=== PATIENT | male | born 1945 | race American Indian/Alaskan Native ===

== ENCOUNTER 2019-05-30 17:28 | Inpatient (IN) | payer OTHER ==
[2019-05-30] MEDS ORDERED: BABY ASPIRIN PO ONE (19:10)
--- NOTE | 2019-05-30 19:18 | Emergency Department Report ---
ED Chest Pain HPI - General Chief Complaint: Chest Pain Stated Complaint: CHEST PAIN Time Seen by Provider: 05/30/19 19:06 Source: patient, EMS Mode of arrival: Stretcher Limitations: No Limitations - History of Present Illness Initial Comments: Patient is 73 years old male with history of pulmonary fibrosis and no recent diagnosis of pneumonia for which patient was admitted for 3 weeks at [facility]. Patient brought to the emergency room from his current acute rehabilitation facility for evaluation of left-sided chest pain started this morning. Patient describes his pain as sharp and aching sometimes with no radiation. Patient initial oxygen saturation was 81% on 2 L increased to 96% on a nonrebreather. Patient stated that his chest pain is much better after using non-rebreather. Patient denied any fever or chills. MD Complaint: chest pain -: This morning Onset: during rest Pain Location: left chest Severity: moderate Severity scale (0 -10): 7 Quality: aching Consistency: constant - Related Data Allergies Allergy/AdvReac Type Severity Reaction Status Date / Time No Known Allergies Allergy Verified 05/30/19 22:04 Heart Score - HEART Score History: Moderately suspicious EKG: Non-specific Age: > 65 Risk factors: 1-2 risk factors Troponin: < normal limit HEART Score: 5 - Critical Actions Critical Actions: 4-6 pts:12-16.6% risk of adverse cardiac event. Should be admitted ED Review of Systems ROS: Stated complaint: CHEST PAIN Other details as noted in HPI Comment: All other systems reviewed and negative Constitutional: denies: chills, fever Respiratory: orthopnea, shortness of breath, SOB with exertion, SOB at rest. denies: cough, wheezing Cardiovascular: chest pain. denies: palpitations Gastrointestinal: denies: abdominal pain, nausea, vomiting, diarrhea, const ipation, hematemesis, melena, hematochezia Musculoskeletal: denies: back pain Neurological: weakness (generalized). denies: headache ED Past Medical Hx - Past Medical History Previous Medical History?: Yes Hx Diabetes: Yes (type 2) Hx Psychiatric Treatment: Yes (PTSD) Additional medical history: Heart attack in February 2019. anemia - Social History Smoking Status: Never Smoker Substance Use Type: None ED Physical Exam - General Limitations: No Limitations General appearance: alert, in distress - Head Head exam: Present: atraumatic, normocephalic, normal inspection - Eye Eye exam: Present: normal appearance, PERRL - ENT ENT exam: Present: normal exam, mucous membranes dry - Neck Neck exam: Present: normal inspection, full ROM. Absent: tenderness, meningismus, lymphadenopathy, thyromegaly - Respiratory Respiratory exam: Present: respiratory distress, rales. Absent: wheezes, rhonchi, stridor, accessory muscle use, decreased breath sounds, prolonged expiratory - Cardiovascular Cardiovascular Exam: Present: tachycardia - GI/Abdominal GI/Abdominal exam: Present: soft, normal bowel sounds. Absent: distended, tenderness, guarding, rebound, rigid, mass, bruit, pulsatile mass, hernia - Extremities Exam Extremities exam: Present: normal inspection, normal capillary refill. Absent: pedal edema - Back Exam Back exam: Present: normal inspection, full ROM. Absent: CVA tenderness (R), CVA tenderness (L) - Neurological Exam Neurological exam: Present: alert, oriented X3, CN II-XII intact - Psychiatric Psychiatric exam: Present: normal mood - Skin Skin exam: Present: warm, normal color ED Course Vital Signs 05/30/19 05/30/19 18:46 19:01 Temperature 98.2 F 98.2 F Pulse Rate 107 H 107 H Respiratory 28 H 28 H Rate Blood Pressure 84/60 84/60 [Right] O2 Sat by Pulse 95 95 Oximetry ED Medical Decision Making - Lab Data Result diagrams: 05/30/19 20:53 05/30/19 20:53 - EKG Data -: EKG Interpreted by Dc EKG shows normal: sinus rhythm Rate: tachycardia - EKG Data Interpretation: no acute changes - Radiology Data Radiology results: report reviewed Referring Physician: ELIAN VILLASENOR Patient Name: JACINTO RODRÍGUEZ Date of : 1945 Sex: Male Report Date: 2019-05-30 Report Status: [place] [address] Cat Scan Report Signed Patient: JACINTO RODRÍGUEZ MR#: [id number] [birth year] : 1945 Acct:[id number] Age/Sex: 73 / M ADM Date: 05/30/19 Loc: ED Attending Dr: Ordering Physician: ELIAN VILLASENOR Date of Service: 05/30/19 Procedure(s): CT angio chest Accession Number(s): [id number] cc: ELIAN VILLASENOR CTA CHEST WITH IV CONTRAST INDICATION: CHEST PAIN WITH SOB WITH HIGH D-DIMER CONTRAST: Unspecified dosage of unspecified agent IV COMPARISON: Chest x-ray tonight Three-plane MIP reconstructions were produced. All CT scans at this location are performed using CT dose reduction for ALARA by means of automated exposure control. FINDINGS: Partially healed old left rib fractures are noted. No mediastinal or hilar masses are noted. No significant axillary or chest wall lesions are seen. Heart is enlarged. Large calcified granuloma is seen in the right middle lobe. Diffuse increased interstitial markings are noted of unclear chronicity. This could include interstitial edema but certainly at least some of these markings appear to be chronic. Mild atelectatic changes are seen but no definite dense areas of consolidation are identified. No obvious noncalcified pulmonary nodules are seen. Mild emphysematous changes are noted in the apical regions. Visualized portions of the upper abdomen show no significant abnormalities. Aorta shows no aneurysmal dilatation or evidence of dissection. Good opacification of the pulmonary arterial system was achieved. The central pulmonary arteries are prominent suggesting pulmonary arterial hypertension. Artifact on this study makes evaluation of the smaller pulmonary arteries difficult. No central PTE is identified. In one minimal area of a small right lower lobe pulmonary artery there is a possible small filling defect but I believe this is more likely artifact makes on multiplanar analysis then true PTE. IMPRESSION: 1. No definite evidence of pulmonary thromboembolism 2. Chronic changes are seen diffusely in the lung fatima. Superimposed interstitial edema cannot be excluded. Signer Name: Evelio Song MD Signed: 05/30/2019 11:14 PM Workstation Name: [id number] Transcribed By: GJ Dictated By: Evelio Song MD Electronically Authenticated By: Evelio Song MD Signed Date/Time: 05/30/19 2391 DD/ 04 TD/TT: - Medical Decision Making Patient is 73 years old male with history of pulmonary fibrosis and no recent diagnosis of pneumonia for which patient was admitted for 3 weeks at [facility]. Patient brought to the emergency room from his current acute rehabilitation facility for evaluation of left-sided chest pain started this morning. Patient describes his pain as sharp and aching sometimes with no radiation. Patient initial oxygen saturation was 81% on 2 L increased to 96% on a nonrebreather. Patient stated that his chest pain is much better after using non-rebreather. Patient denied any fever or chills. Labs reviewed and showed a lactic acid of 3. CTA chest is negative for pulmonary embolism but he showed pulmonary edema. I discussed the patient with Dr. Anjelica Hood, she agreed to admit the patient to medical service. Critical Care Time: Yes Critical care time in (mins) excluding proc time.: 30 Critical care attestation.: If time is entered above; I have spent that time in minutes in the direct care of this critically ill patient, excluding procedure time. ED Disposition Clinical Impression: Acute respiratory failure, Acute CHF, Hypotension Disposition: DC-[id number] OP ADMIT IP TO THIS HOSP Is pt being admited?: Yes Condition: Stable
[2019-05-30] MEDS ORDERED: NACL 0.9% 1000 ML IV ONE (19:19)
--- NOTE | 2019-05-30 20:10 | XRay Report ---
CHEST 1 VIEW INDICATION: Chest Pain. COMPARISON: None FINDINGS: SUPPORT DEVICES: None. HEART / MEDIASTINUM: No significant abnormality. LUNGS / PLEURA: Lung volumes are decreased. Interstitial markings are prominent. No pneumothorax. ADDITIONAL FINDINGS: IMPRESSION: 1. Diffuse interstitial pulmonary edema Signer Name: David Oropeza MD Signed: 05/30/2019 8:06 PM Workstation Name: [id number]
[2019-05-30 21:04] LABS: Basophils % (Auto) 0.3 % (0.0-1.8); Eosinophils % (Auto) 0.1 % (0.0-4.3); Hematocrit 33.7 % (35.5-45.6); Hemoglobin 11.3 gm/dl (11.8-15.2); Lymphocytes # (Auto) 0.5 K/mm3 (1.2-5.4); Lymphocytes % (Auto) 6.5 % (13.4-35.0); Mean Corpuscular HGB Conc 34 % (32-34); Mean Corpuscular Volume 83 fl (84-94); Monocytes # (Auto) 0.3 K/mm3 (0.0-0.8); Monocytes % (Auto) 3.4 % (0.0-7.3); Platelet Count 339 K/mm3 (140-440); Red Blood Count 4.09 M/mm3 (3.65-5.03); Red Cell Distribution Width 18.6 % (13.2-15.2)
[2019-05-30] MEDS ORDERED: NACL 0.9% 1000 ML 1,000 ML ONE (21:20)
[2019-05-30 21:21] LABS: INR 1.12 (0.87-1.13)
[2019-05-30 21:22] LABS: Partial Thromboplastin Time 34.1 Sec. (24.2-36.6)
[2019-05-30 21:32] LABS: Albumin 3.6 g/dL (3.9-5); Calcium 9.2 mg/dL (8.4-10.2)
[2019-05-30] MEDS ORDERED: ZOSYN/NS 3.375GM/50ML 3.375 GM/50 ML BAG IV ONE (22:00)
--- NOTE | 2019-05-30 23:18 | Cat Scan Report ---
CTA CHEST WITH IV CONTRAST INDICATION: CHEST PAIN WITH SOB WITH HIGH D-DIMER CONTRAST: Unspecified dosage of unspecified agent IV COMPARISON: Chest x-ray tonight Three-plane MIP reconstructions were produced. All CT scans at this location are performed using CT d ose reduction for ALARA by means of automated exposure control. FINDINGS: Partially healed old left rib fractures are noted. No mediastinal or hilar masses are noted . No significant axillary or chest wall lesions are seen. Heart is enlarged. Large calcified granulom a is seen in the right middle lobe. Diffuse increased interstitial markings are noted of unclear proofer prepress nicity. This could include interstitial edema but certainly at least some of these markings appear to be chronic. Mild atelectatic changes are seen but no definite dense areas of consolidation are ident ified. No obvious noncalcified pulmonary nodules are seen. Mild emphysematous changes are noted in th e apical regions. Visualized portions of the upper abdomen show no significant abnormalities. Aorta shows no aneurysmal dilatation or evidence of dissection. Good opacification of the pulmonary arterial system was achieved. The central pulmonary arteries are prominent suggesting pulmonary arterial hypertension. Artifact on this study makes evaluation of the smaller pulmonary arteries difficult. No central PTE is identified. In one minimal area of a small ri ght lower lobe pulmonary artery there is a possible small filling defect but I believe this is more l ikely artifact makes on multiplanar analysis then true PTE. IMPRESSION: 1. No definite evidence of pulmonary thromboembolism 2. Chronic changes are seen diffusely in the lung fatima. Superimposed interstitial edema cannot be e xcluded. Signer Name: Evelio Song MD Signed: 05/30/2019 11:14 PM Workstation Name: [id number]
[2019-05-30 23:21] LABS: Bilirubin,Urine NEG (Negative); Blood,Urine NEG (Negative); Color,Urine Yellow (Yellow); Hyaline Casts,Urine 5 /LPF; Mucus,Urine FEW /HPF; Protein,Urine <15 mg/dL mg/dL (Negative); RBC,Urine < 1.0 /HPF (0.0-6.0); Urobilinogen,Urine < 2.0 mg/dL (<2.0)
[2019-05-30] MEDS ORDERED: PROVENTIL IH PRN (23:55)
--- NOTE | 2019-05-30 23:56 | History and Physical Report ---
<JUAN WEEKS - Last Filed: 05/31/19 02:23> History of Present Illness Date of examination: 05/30/19 Date of admission: 05/30/2019 Chief complaint: chest pain History of present illness: 73-year-old -Lithuanian male is a resident of [facility] with history of PTSD, DM 2, HTN, pulmonary hypertension, [place] (03/07 19), anemia, pulmonary fibrosis, bronchiectasis, chronic respiratory failure on 2 L continuous supplemental oxygen who presents to [facility] ED with complaints of left- sided chest pain with radiation to left upper quadrant. Patient states his chest pain started approximately 1-2 hours before presenting to the ED. EMS was called and he was transported to our facility for further evaluation. Upon ar rival his oxygen saturation was in the low 80s on 2L nasal cannula. He was placed on a nonrebreather mask with improvement of saturation to mid 90s. Of note patient was recently admitted to [facility] and treated for pneumonia. Denies: n/v/, fever, diaphoresis, headache, cough, sputum production, or recent sick contact Past History Past Medical History: acute [place], arrhythmia (february 2019), anemia, diabetes (type2), hypertension, other (PTSD, pulmonary hypertension, failure to thrive, chronic hypoxic respiratory failure, pulmonary fibrosis, bronchiectasis) Past Surgical History: No surgical history Social history: other (resident of [facility]) Medications and Allergies Allergies Allergy/AdvReac Type Severity Reaction Status Date / Time No Known Allergies Allergy Verified 05/30/19 22:04 Home Medications Medication Instructions Recorded Confirmed Last Taken Type Budesonide [Pulmicort] 0.5 mg IH BID 06/02/19 06/02/19 Unknown History Lisinopril 20 mg PO QDAY 06/02/19 06/02/19 3 Days Ago History ~05/30/19 Pantoprazole 40 mg PO QDAY 06/02/19 06/02/19 3 Days Ago History ~05/30/19 RisperiDONE 1 mg PO HS 06/02/19 06/02/19 3 Days Ago History ~05/30/19 Sertraline HCl 50 mg PO DAILY 06/02/19 06/02/19 3 Days Ago History ~05/30/19 Tessalon Perles 100 mg PO DAILY MDD X14 DAY ODER 06/02/19 06/02/19 Unknown History ON Tylenol 650 mg PO Q4HR PRN 06/02/19 06/02/19 Unknown History Xanax TAB 0.25 mg PO Q12HR PRN 06/02/19 06/02/19 3 Days Ago History ~05/30/19 Review of Systems All systems: negative Cardiovascular: chest pain, shortness of breath, dyspnea on exertion Respiratory: shortness of breath, dyspnea on exertion, home oxygen (2L continuously) Exam - Physical Exam Narrative exam: Physical exam General appearance: Present: Mild discomfort, medically ill-appearing, alert and oriented 3, -Lithuanian older adult male - EENT Eyes: Present: PERRL, EOM intact ENT: hearing intact, missing teeth - Neck Neck: Present: supple, normal ROM - Respiratory Respiratory effort: Labored on supplemental oxygen Respiratory: Diminished throughout - Cardiovascular Heart rate: 67 (bpm) Rhythm: SR, nonspecific T-wave abnormality Heart Sounds: Present: S1 & S2. Absent: rub, click - Extremities Extremities: no ischemia, pulses intact - Peripheral Assessment Peripheral Pulses: within normal limits - Abdominal General gastrointestinal: soft, non-tender, normal bowel sounds - Integumentary Integumentary: Present: warm, dry - Musculoskeletal Musculoskeletal: generalized weakness, able to move extremities x4 -Neurological Neurological: CN II-XII grossly intact - Psychiatric Psychiatric: cooperative - Constitutional Vitals: Temp Pulse Resp BP Pulse Ox 98.2 F 107 H 28 H 84/60 95 05/30/19 19:01 05/30/19 19:01 05/30/19 19:01 05/30/19 19:01 05/30/19 19:01 Results - Labs CBC & Chem 7: 05/30/19 20:53 05/30/19 20:53 Labs: Laboratory Last Values WBC 7.6 K/mm3 (4.5-11.0) 05/30/19 20:53 RBC 4.09 M/mm3 (3.65-5.03) 05/30/19 20:53 Hgb 11.3 gm/dl (11.8-15.2) L 05/30/19 20:53 Hct 33.7 % (35.5-45.6) L 05/30/19 20:53 MCV 83 fl (84-94) L 05/30/19 20:53 MCH 28 pg (28-32) 05/30/19 20:53 MCHC 34 % (32-34) 05/30/19 20:53 RDW 18.6 % (13.2-15.2) H 05/30/19 20:53 Plt Count 339 K/mm3 (140-440) 05/30/19 20:53 Lymph % (Auto) 6.5 % (13.4-35.0) L 05/30/19 20:53 Wallace % (Auto) 3.4 % (0.0-7.3) 05/30/19 20:53 Eos % (Auto) 0.1 % (0.0-4.3) 05/30/19 20:53 Baso % (Auto) 0.3 % (0.0-1.8) 05/30/19 20:53 Lymph # 0.5 K/mm3 (1.2-5.4) L 05/30/19 20:53 Wallace # 0.3 K/mm3 (0.0-0.8) 05/30/19 20:53 Eos # 0.0 K/mm3 (0.0-0.4) 05/30/19 20:53 Baso # 0.0 K/mm3 (0.0-0.1) 05/30/19 20:53 Seg Neutrophils % 89.7 % (40.0-70.0) H 05/30/19 20:53 Seg Neutrophils # 6.9 K/mm3 (1.8-7.7) 05/30/19 20:53 PT 14.1 Sec. (12.2-14.9) 05/30/19 20:53 INR 1.12 (0.87-1.13) 05/30/19 20:53 APTT 34.1 Sec. (24.2-36.6) 05/30/19 20:53 330.84 ng/mlDDU (0-234) H 05/30/19 20:53 Sodium 133 mmol/L (137-145) L 05/30/19 20:53 Potassium 4.7 mmol/L (3.6-5.0) 05/30/19 20:53 Chloride 95.8 mmol/L (98-107) L 05/30/19 20:53 Carbon Dioxide 20 mmol/L (22-30) L 05/30/19 20:53 22 mmol/L 05/30/19 20:53 BUN 18 mg/dL (9-20) 05/30/19 20:53 1.4 mg/dL (0.8-1.5) 05/30/19 20:53 Estimated GFR 50 ml/min 05/30/19 20:53 13 % 05/30/19 20:53 Glucose 112 mg/dL (75-100) H 05/30/19 20:53 Lactic Acid 2.20 mmol/L (0.7-2.0) H* 05/30/19 22:46 Calcium 9.2 mg/dL (8.4-10.2) 05/30/19 20:53 0.30 mg/dL (0.1-1.2) 05/30/19 20:53 AST 14 units/L (5-40) 05/30/19 20:53 ALT 8 units/L (7-56) 05/30/19 20:53 91 units/L (35-129) 05/30/19 20:53 0.018 ng/mL (0.00-0.029) 05/30/19 20:53 NT-Pro-B Natriuret Pep 51698 pg/mL (0-900) H 05/30/19 20:53 7.1 g/dL (6.3-8.2) 05/30/19 20:53 3.6 g/dL (3.9-5) L 05/30/19 20:53 1.0 % 05/30/19 20:53 11 units/L (13-60) L 05/30/19 20:53 Yellow (Yellow) 05/30/19 23:00 Slightly-cloudy (Clear) 05/30/19 23:00 5.0 (5.0-7.0) 05/30/19 23:00 Ur Specific Chambers 1.041 (1.003-1.030) H 05/30/19 23:00 <15 mg/dl mg/dL (Negative) 05/30/19 23:00 Neg mg/dL (Negative) 05/30/19 23:00 Neg mg/dL (Negative) 05/30/19 23:00 Neg (Negative) 05/30/19 23:00 Neg (Negative) 05/30/19 23:00 Neg (Negative) 05/30/19 23:00 < 2.0 mg/dL (<2.0) 05/30/19 23:00 Ur Leukocyte Esterase Neg (Negative) 05/30/19 23:00 4.0 /HPF (0.0-6.0) 05/30/19 23:00 < 1.0 /HPF (0.0-6.0) 05/30/19 23:00 U Epithel Cells (Auto) 1.0 /HPF (0-13.0) 05/30/19 23:00 Hyaline Casts 5 /LPF 05/30/19 23:00 Few /HPF 05/30/19 23:00 - Imaging and Cardiology Imaging and Cardiology: CT angio Chest: FINDINGS: Partially healed old left rib fractures are noted. No mediastinal or hilar masses are noted. No significant axillary or chest wall lesions are seen. Heart is enlarged. Large calcified granuloma is seen in the right middle lobe. Diffuse increased interstitial markings are noted of unclear chronicity. This could include interstitial edema but certainly at least some of these markings appear to be chronic. Mild atelectatic changes are seen but no definite dense areas of consolidation are identified. No obvious noncalcified pulmonary nodules are seen. Mild emphysematous changes are noted in the apical regions. Visualized portions of the upper abdomen show no significant abnormalities. Aorta shows no aneurysmal dilatation or evidence of dissection. Good opacification of the pulmonary arterial system was achieved. The central pulmonary arteries are prominent suggesting pulmonary arterial hypertension. Artifact on this study makes evaluation of the smaller pulmonary arteries difficult. No central PTE is identified. In one minimal area of a small right lower lobe pulmonary artery there is a possible small filling defect but I believe this is more likely artifact makes on multiplanar analysis then true PTE. IMPRESSION: 1. No definite evidence of pulmonary thromboembolism 2. Chronic changes are seen diffusely in the lung fatima. Superimposed interstitial edema cannot be excluded. CXR: FINDINGS: SUPPORT DEVICES: None. HEART / MEDIASTINUM: No significant abnormality. LUNGS / PLEURA: Lung volumes are decreased. Interstitial markings are prominent. No pneumothorax. ADDITIONAL FINDINGS: IMPRESSION: 1. Diffuse interstitial pulmonary edema Assessment and Plan Assessment and plan: 73-year-old -Lithuanian male is a resident of [facility] with history of PTSD, DM 2, HTN, pulmonary hypertension, NJ (03/07 19), anemia, pulmonary fibrosis, bronchiectasis, chronic respiratory failure on 2 L continuous supplemental oxygen who presents to [facility] ED with complaints of left- sided chest pain with radiation to left upper quadrant. Acute Chest Pain R/O ACS -Initiate chest pain protocol -Continuous telemetry monitoring -Continue supportive care -Pain mgmt -Troponin negative x 1, will continue to trend -Start ASA and Statin -Lipid panel pending -Hx of [place] (02/2019) -Cardiology Consulted Exacerbation CHF -New onset -CXR showed Diffuse interstitial pulmonary edema -BNP elevated 29655 -Cardiology Consulted Acute on Chronic Hypoxic Respiratory Failure -Baseline oxygen 2L NC continuously -Oxygen saturation in the 80's on 2L NC -Currently on non-rebreather -ABG 7.383/33.8/64/21 -On IV systemic steroids -Monitor saturations wean as tolerate ILD -Likely having ILD flare -Hx Bronchiectasis -Hx Pulmonary fibrosis -CT angio Chest showed Chronic changes are seen diffusely in the lung fatima -Continue supplemental oxygen -Continue systemic steroids -Pulmonary consulted Suspicion of PE Elevated d-dimer 330.84 -CTA negative for PE -PE ruled out DM2 -POC BG monitoring -SSI coverage prn -HgbA1C pending Hypertension -Continue to monitor BP -Resume home antihypertensive meds to optimize BP once home medication reconciliation has been completed Lactic acidosis -Lactic Acid 3.00 on admission -Received dose of empiric IV abx in ED -Cultures pending -Repeat Lactic Acid 2.20 -Afebrile -No leukocytosis -Continue to monitor DVT PPX -On Lovenox Advance Directives: No VTE prophylaxis?: Chemical Plan of care discussed with patient/family: Yes <DISHA FLORES - Last Filed: 06/06/19 00:51> History of Present Illness Date of admission: 05/30/19 23:55 Medications and Allergies Active Meds: Active Medications Acetaminophen (Tylenol) 650 mg PO Q4H PRN PRN Reason: Pain MILD(1-3)/Fever >100.5/CARSON Albuterol (Proventil) 2.5 mg IH Q3HRT PRN PRN Reason: Shortness Of Breath Aspirin (Baby Aspirin) 81 mg PO QDAY SINID Atorvastatin Calcium (Lipitor) 40 mg PO QHS SINDI Dextrose (D50w (25gm) Syringe) 50 ml IV PRN PRN PRN Reason: Hypoglycemia Enoxaparin Sodium (Lovenox) 40 mg SUB-Q QDAY@1000 SINDI Hydromorphone HCl (Dilaudid) 0.5 mg IV Q3H PRN PRN Reason: Pain , Severe (7-10) Methylprednisolone Sodium Succinate (Solu-Medrol) 60 mg IV Q8HR [facility] Last Admin: 05/31/19 05:13 Dose: 60 mg Documented by: Morphine Sulfate (Morphine) 2 mg IV Q4H PRN PRN Reason: Pain, Moderate (4-6) Ondansetron HCl (Zofran) 4 mg IV Q6H PRN PRN Reason: Nausea And Vomiting Sodium Chloride (Sodium Chloride Flush Syringe 10 Ml) 10 ml IV BID SINDI Sodium Chloride (Sodium Chloride Flush Syringe 10 Ml) 10 ml IV PRN PRN PRN Reason: LINE FLUSH Exam - Constitutional Vitals: Temp Pulse Resp BP Pulse Ox 97.4 F L 89 18 97/66 100 05/31/19 04:34 05/31/19 04:34 05/31/19 04:34 05/31/19 04:34 05/31/19 04:34 Results - Labs CBC & Chem 7: 06/03/19 05:17 06/03/19 05:17 Labs: Laboratory Last Values WBC 7.6 K/mm3 (4.5-11.0) 05/30/19 20:53 RBC 4.09 M/mm3 (3.65-5.03) 05/30/19 20:53 Hgb 11.3 gm/dl (11.8-15.2) L 05/30/19 20:53 Hct 33.7 % (35.5-45.6) L 05/30/19 20:53 MCV 83 fl (84-94) L 05/30/19 20:53 MCH 28 pg (28-32) 05/30/19 20:53 MCHC 34 % (32-34) 05/30/19 20:53 RDW 18.6 % (13.2-15.2) H 05/30/19 20:53 Plt Count 339 K/mm3 (140-440) 05/30/19 20:53 Lymph % (Auto) 6.5 % (13.4-35.0) L 05/30/19 20:53 Wallace % (Auto) 3.4 % (0.0-7.3) 05/30/19 20:53 Eos % (Auto) 0.1 % (0.0-4.3) 05/30/19 20:53 Baso % (Auto) 0.3 % (0.0-1.8) 05/30/19 20:53 Lymph # 0.5 K/mm3 (1.2-5.4) L 05/30/19 20:53 Wallace # 0.3 K/mm3 (0.0-0.8) 05/30/19 20:53 Eos # 0.0 K/mm3 (0.0-0.4) 05/30/19 20:53 Baso # 0.0 K/mm3 (0.0-0.1) 05/30/19 20:53 Seg Neutrophils % 89.7 % (40.0-70.0) H 05/30/19 20:53 Seg Neutrophils # 6.9 K/mm3 (1.8-7.7) 05/30/19 20:53 PT 14.1 Sec. (12.2-14.9) 05/30/19 20:53 INR 1.12 (0.87-1.13) 05/30/19 20:53 APTT 34.1 Sec. (24.2-36.6) 05/30/19 20:53 330.84 ng/mlDDU (0-234) H 05/30/19 20:53 POC ABG pH 7.383 (7.35-7.45) 05/31/19 00:41 POC ABG pCO2 33.8 (35-45) L 05/31/19 00:41 POC ABG pO2 64 (80-105) L 05/31/19 00:41 POC ABG HCO3 20.1 (22-26 mml/L) 05/31/19 00:41 POC ABG Total CO2 21 (23-27mmol/L) 05/31/19 00:41 POC ABG O2 Sat 92 05/31/19 00:41 POC ABG Base Excess -5 ((-2) - (+3)mmol/L) 05/31/19 00:41 36 % 05/31/19 00:41 Sodium 133 mmol/L (137-145) L 09/12/19 20:53 Potassium 4.7 mmol/L (3.6-5.0) 05/30/19 20:53 Chloride 95.8 mmol/L (98-107) L 05/30/19 20:53 Carbon Dioxide 20 mmol/L (22-30) L 05/30/19 20:53 22 mmol/L 05/30/19 20:53 BUN 18 mg/dL (9-20) 05/30/19 20:53 1.4 mg/dL (0.8-1.5) 05/30/19 20:53 Estimated GFR 50 ml/min 05/30/19 20:53 13 % 05/30/19 20:53 Glucose 112 mg/dL (75-100) H 05/30/19 20:53 Lactic Acid 1.90 mmol/L (0.7-2.0) 05/31/19 03:44 Calcium 9.2 mg/dL (8.4-10.2) 05/30/19 20:53 0.30 mg/dL (0.1-1.2) 05/30/19 20:53 AST 14 units/L (5-40) 05/30/19 20:53 ALT 8 units/L (7-56) 05/30/19 20:53 91 units/L (35-129) 05/30/19 20:53 0.011 ng/mL (0.00-0.029) 05/31/19 00:51 NT-Pro-B Natriuret Pep 14481 pg/mL (0-900) H 05/30/19 20:53 7.1 g/dL (6.3-8.2) 05/30/19 20:53 3.6 g/dL (3.9-5) L 05/30/19 20:53 1.0 % 05/30/19 20:53 Triglycerides 74 mg/dL (2-149) 05/31/19 03:44 Cholesterol 182 mg/dL (50-199) 05/31/19 03:44 117 mg/dL (50-130) 05/31/19 03:44 67 mg/dL (40-59) H 05/31/19 03:44 2.71 % 05/31/19 03:44 11 units/L (13-60) L 05/30/19 20:53 Yellow (Yellow) 05/30/19 23:00 Slightly-cloudy (Clear) 05/30/19 23:00 5.0 (5.0-7.0) 05/30/19 23:00 Ur Specific Chambers 1.041 (1.003-1.030) H 05/30/19 23:00 <15 mg/dl mg/dL (Negative) 05/30/19 23:00 Neg mg/dL (Negative) 05/30/19 23:00 Neg mg/dL (Negative) 05/30/19 23:00 Neg (Negative) 05/30/19 23:00 Neg (Negative) 05/30/19 23:00 Neg (Negative) 05/30/19 23:00 < 2.0 mg/dL (<2.0) 05/30/19 23:00 Ur Leukocyte Esterase Neg (Negative) 05/30/19 23:00 4.0 /HPF (0.0-6.0) 05/30/19 23:00 < 1.0 /HPF (0.0-6.0) 05/30/19 23:00 U Epithel Cells (Auto) 1.0 /HPF (0-13.0) 05/30/19 23:00 Hyaline Casts 5 /LPF 05/30/19 23:00 Few /HPF 05/30/19 23:00 Assessment and Plan Assessment and plan: A 73-year-old man with a history of urinary fibrosis, diabetes, PTSD, coronary artery disease (doubt coronary artery disease, patient described a cardiac arrest) the emergency room complaining of chest pain, shortness of breath. Lungs significant for decreased breath sounds, start steroids and nebulizer treatments. cardiology consult, no sign or symptoms of infection, continue to monitor
[2019-05-31] MEDS ORDERED: SODIUM CHLORIDE FLUSH SYRINGE 10 ML IV PRN (00:07)
[2019-05-31] MEDS ORDERED: ZOFRAN IV PRN (00:07)
[2019-05-31] MEDS ORDERED: D50W (25GM) Syringe IV PRN (00:07)
[2019-05-31] MEDS ORDERED: DILAUDID IV PRN (00:07)
[2019-05-31] MEDS ORDERED: SOLU-Medrol ONE (00:56)
[2019-05-31] MEDS ORDERED: SOLU-Medrol IV ONE (01:30)
[2019-05-31 04:57] LABS: Chol/HDL Ratio 2.71 %
[2019-05-31] MEDS: SOLU-Medrol IV SCH ×3 (05:13→21:49)
[2019-05-31] MEDS: MORPHINE IV PRN ×3 (07:35→22:22)
[2019-05-31] MEDS ORDERED: LOVENOX SUB-Q SCH ×2 (10:00→22:00)
--- NOTE | 2019-05-31 13:24 | Consultation ---
History of Present Illness Consult date: 05/31/19 Consult reason: chest pain History of present illness: Patient is a frail 73-year old male with a history of chronic lung disease, pulmonary fibrosis on home oxygen, anxiety, diabetes and hypertension. Of note, patient has had multiple hospitalization at [facility] over the last 3 months. In February he was hospitalized with PEA arrest thought secondary to hypoxia. An echocardiogram revealed a normal LV size with a well preserved ejection fraction 62%. He was evaluated by cardiology who recommended outpatient follow up. More recently, patient was just discharged a week ago, after a prolonged hospital stay, with respiratory failure and pneumonia. Patient was brought to this hospital with shortness of breath and chest pain, admitted with acute hypoxic respiratory failure. Chest x-ray reports diffuse interstitial edema. Chest CTA reports diffuse chronic lung changes superimposed with pulmonary edema. No evidence of pulmonary embolism. Initial labs shows an elevated BNP. Cycled troponins were normal thus far. Blood pressure has remained in the 90 low 100s since admission. An ECG is sinus rhythm with diffuse Twave inversions. No prior ECG available for comparison. Past History Past Medical History: acute [place], arrhythmia (february 2019), anemia, diabetes (type2), hypertension, other (PTSD, pulmonary hypertension, failure to thrive, chronic hypoxic respiratory failure, pulmonary fibrosis, bronchiectasis) Past Surgical History: No surgical history Social history: other (resident of [facility]) Medications and Allergies Allergies Allergy/AdvReac Type Severity Reaction Status Date / Time No Known Allergies Allergy Verified 05/30/19 22:04 Active Meds: Active Medications Acetaminophen (Tylenol) 650 mg PO Q4H PRN PRN Reason: Pain MILD(1-3)/Fever >100.5/CARSON Albuterol (Proventil) 2.5 mg IH Q3HRT PRN PRN Reason: Shortness Of Breath Aspirin (Baby Aspirin) 81 mg PO QDAY SINDI Atorvastatin Calcium (Lipitor) 40 mg PO QHS SINDI Dextrose (D50w (25gm) Syringe) 50 ml IV PRN PRN PRN Reason: Hypoglycemia Enoxaparin Sodium (Lovenox) 40 mg SUB-Q QDAY@1000 SINDI Hydromorphone HCl (Dilaudid) 0.5 mg IV Q3H PRN PRN Reason: Pain , Severe (7-10) Methylprednisolone Sodium Succinate (Solu-Medrol) 60 mg IV Q8HR SINDI Last Admin: 05/31/19 05:13 Dose: 60 mg Documented by: Morphine Sulfate (Morphine) 2 mg IV Q4H PRN PRN Reason: Pain, Moderate (4-6) Last Admin: 05/31/19 07:35 Dose: 2 mg Documented by: Ondansetron HCl (Zofran) 4 mg IV Q6H PRN PRN Reason: Nausea And Vomiting Sodium Chloride (Sodium Chloride Flush Syringe 10 Ml) 10 ml IV BID SINDI Sodium Chloride (Sodium Chloride Flush Syringe 10 Ml) 10 ml IV PRN PRN PRN Reason: LINE FLUSH Physical Examination Vital Signs Temp Pulse Resp BP Pulse Ox 98.2 F 107 H 28 H 84/60 95 05/30/19 18:46 05/30/19 18:46 05/30/19 18:46 05/30/19 18:46 05/30/19 18:46 General appearance: mild distress HEENT: Positive: PERRL Neck: Positive: trachea midline Cardiac: Positive: Reg Rate and Rhythm Lungs: Positive: Decreased Breath Sounds Results 05/30/19 20:53 05/30/19 20:53 Cardiac Enzymes 05/30/19 Range/Units 20:53 AST 14 (5-40) units/L Coagulation 05/30/19 Range/Units 20:53 PT 14.1 (12.2-14.9) Sec. INR 1.12 (0.87-1.13) APTT 34.1 (24.2-36.6) Sec. Lipids 05/31/19 Range/Units 03:44 Triglycerides 74 (2-149) mg/dL Cholesterol 182 (50-199) mg/dL HDL Cholesterol 67 H (40-59) mg/dL Cholesterol/HDL Ratio 2.71 % CBC 05/30/19 Range/Units 20:53 WBC 7.6 (4.5-11.0) K/mm3 RBC 4.09 (3.65-5.03) M/mm3 Hgb 11.3 L (11.8-15.2) gm/dl Hct 33.7 L (35.5-45.6) % Plt Count 339 (140-440) K/mm3 Lymph # 0.5 L (1.2-5.4) K/mm3 [place] # 0.3 (0.0-0.8) K/mm3 Eos # 0.0 (0.0-0.4) K/mm3 Baso # 0.0 (0.0-0.1) K/mm3 Comprehensive Metabolic Panel 05/30/19 Range/Units 20:53 Sodium 133 L (137-145) mmol/L Potassium 4.7 (3.6-5.0) mmol/L Chloride 95.8 L (98-107) mmol/L Carbon Dioxide 20 L (22-30) mmol/L BUN 18 (9-20) mg/dL Creatinine 1.4 (0.8-1.5) mg/dL Glucose 112 H (75-100) mg/dL Calcium 9.2 (8.4-10.2) mg/dL AST 14 (5-40) units/L ALT 8 (7-56) units/L Alkaline Phosphatase 91 (35-129) units/L Total Protein 7.1 (6.3-8.2) g/dL Albumin 3.6 L (3.9-5) g/dL Assessment and Plan Acute hypoxic respiratory failure with hypoxia Lactic acidosis Chronic lung disease on home oxygen Volume overload Abnormal ECG Acute heart failure, diastolic EF 62% on echo 02/2019
--- NOTE | 2019-05-31 13:35 | Consultation ---
History of Present Illness Consult date: 05/31/19 Requesting physician: JUAN WEEKS Reason for consult: dyspnea History of present illness: 73 yo previously seen at [facility] by [facility]. He is admitted with increased SOB, hypoxia above baseline, and chest pain. Denies fevers, chills, cough, sputum, hemoptysis. Active Medications Acetaminophen (Tylenol) 650 mg PO Q4H PRN PRN Reason: Pain MILD(1-3)/Fever >100.5/CARSON Albuterol (Proventil) 2.5 mg IH Q3HRT PRN PRN Reason: Shortness Of Breath Aspirin (Baby Aspirin) 81 mg PO QDAY [facility] Atorvastatin Calcium (Lipitor) 40 mg PO QHS [facility] Last Admin: 05/31/19 22:20 Dose: 40 mg Documented by: Clopidogrel Bisulfate (Plavix) 75 mg PO QDAY [facility] Last Admin: 05/31/19 18:33 Dose: 75 mg Documented by: Dextrose (D50w (25gm) Syringe) 50 ml IV PRN PRN PRN Reason: Hypoglycemia Enoxaparin Sodium (Lovenox) 70 mg 1 mg/kg (70 mg) SUB-Q Q12HR [facility] Last Admin: 05/31/19 21:51 Dose: 70 mg Documented by: Furosemide (Lasix) 20 mg PO 0600,1800 [facility] Last Admin: 05/31/19 18:33 Dose: 20 mg Documented by: Hydromorphone HCl (Dilaudid) 0.5 mg IV Q3H PRN PRN Reason: Pain , Severe (7-10) Levofloxacin/Dextrose (Levaquin 750mg/150ml) 750 mg in 150 mls @ 100 mls/hr IV Q24HR [facility]; Protocol Methylprednisolone Sodium Succinate (Solu-Medrol) 60 mg IV Q8HR [facility] Last Admin: 05/31/19 21:49 Dose: 60 mg Documented by: Metoprolol Tartrate (Lopressor) 12.5 mg PO BID [facility] Last Admin: 05/31/19 22:15 Dose: 12.5 mg Documented by: Morphine Sulfate (Morphine) 2 mg IV Q4H PRN PRN Reason: Pain, Moderate (4-6) Last Admin: 05/31/19 22:22 Dose: 2 mg Documented by: Ondansetron HCl (Zofran) 4 mg IV Q6H PRN PRN Reason: Nausea And Vomiting Sodium Chloride (Sodium Chloride Flush Syringe 10 Ml) 10 ml IV BID [facility] Last Admin: 05/31/19 14:45 Dose: 10 ml Documented by: Sodium Chloride (Sodium Chloride Flush Syringe 10 Ml) 10 ml IV PRN PRN PRN Reason: LINE FLUSH Past History Past Medical History: acute NE, arrhythmia (february 2019), anemia, diabetes (type 2), hypertension, other (PTSD, pulmonary hypertension, failure to thrive, chronic hypoxic respiratory failure, pulmonary fibrosis, bronchiectasis) Past Surgical History: No surgical history Social history: other (resident of [facility]). denies: smoking Family history: other (No pulm issues) Medications and Allergies Allergies Allergy/AdvReac Type Severity Reaction Status Date / Time No Known Allergies Allergy Verified 05/30/19 22:04 Active Meds: Active Medications Acetaminophen (Tylenol) 650 mg PO Q4H PRN PRN Reason: Pain MILD(1-3)/Fever >100.5/CARSON Albuterol (Proventil) 2.5 mg IH Q3HRT PRN PRN Reason: Shortness Of Breath Aspirin (Baby Aspirin) 81 mg PO QDAY [facility] Atorvastatin Calcium (Lipitor) 40 mg PO QHS [facility] Dextrose (D50w (25gm) Syringe) 50 ml IV PRN PRN PRN Reason: Hypoglycemia Enoxaparin Sodium (Lovenox) 40 mg SUB-Q QDAY@1000 [facility] Hydromorphone HCl (Dilaudid) 0.5 mg IV Q3H PRN PRN Reason: Pain , Severe (7-10) Methylprednisolone Sodium Succinate (Solu-Medrol) 60 mg IV Q8HR [facility] Last Admin: 05/31/19 05:13 Dose: 60 mg Documented by: Morphine Sulfate (Morphine) 2 mg IV Q4H PRN PRN Reason: Pain, Moderate (4-6) Last Admin: 05/31/19 07:35 Dose: 2 mg Documented by: Ondansetron HCl (Zofran) 4 mg IV Q6H PRN PRN Reason: Nausea And Vomiting Sodium Chloride (Sodium Chloride Flush Syringe 10 Ml) 10 ml IV BID [facility] Sodium Chloride (Sodium Chloride Flush Syringe 10 Ml) 10 ml IV PRN PRN PRN Reason: LINE FLUSH Review of Systems All systems: negative Physical Examination Vital signs: Vital Signs Temp Pulse Resp BP Pulse Ox 98.2 F 107 H 28 H 84/60 95 05/30/19 18:46 05/30/19 18:46 05/30/19 18:46 05/30/19 18:46 05/30/19 18:46 Vital Signs - 24 hr 05/30/19 05/30/19 05/30/19 18:46 19:01 23:01 Temperature 98.2 F 98.2 F Pulse Rate 107 H 107 H Respiratory 28 H 28 H Rate Blood Pressure 92/61 Blood Pressure 84/60 84/60 [Right] O2 Sat by Pulse 95 95 100 Oximetry 05/30/19 05/30/19 05/30/19 23:10 23:20 23:30 Temperature Pulse Rate Respiratory Rate Blood Pressure 92/61 87/58 81/57 Blood Pressure [Right] O2 Sat by Pulse 100 100 97 Oximetry 05/30/19 05/30/19 05/31/19 23:41 23:51 00:00 Temperature Pulse Rate Respiratory Rate Blood Pressure 81/57 103/71 98/62 Blood Pressure [Right] O2 Sat by Pulse 96 93 91 Oximetry 05/31/19 05/31/19 05/31/19 00:11 00:21 00:31 Temperature Pulse Rate Respiratory Rate Blood Pressure 92/61 96/71 96/71 Blood Pressure [Right] O2 Sat by Pulse 72 L 78 L 92 Oximetry 05/31/19 05/31/19 05/31/19 00:41 00:51 01:00 Temperature Pulse Rate 100 H Respiratory 31 H Rate Blood Pressure 96/71 96/71 Blood Pressure [Right] O2 Sat by Pulse 99 97 96 Oximetry 05/31/19 05/31/19 05/31/19 01:01 01:11 01:21 Temperature Pulse Rate Respiratory Rate Blood Pressure 96/71 96/71 96/71 Blood Pressure [Right] O2 Sat by Pulse 97 97 99 Oximetry 05/31/19 05/31/19 05/31/19 01:31 01:41 01:51 Temperature Pulse Rate Respiratory Rate Blood Pressure 96/71 96/71 96/71 Blood Pressure [Right] O2 Sat by Pulse 98 99 95 Oximetry 05/31/19 05/31/19 05/31/19 02:01 02:11 02:21 Temperature Pulse Rate Respiratory Rate Blood Pressure 96/71 96/71 96/71 Blood Pressure [Right] O2 Sat by Pulse 99 94 98 Oximetry 05/31/19 05/31/19 05/31/19 02:31 02:41 02:51 Temperature Pulse Rate Respiratory Rate Blood Pressure 96/71 96/71 96/71 Blood Pressure [Right] O2 Sat by Pulse 98 96 99 Oximetry 05/31/19 05/31/19 05/31/19 03:00 03:02 03:11 Temperature 98.1 F Pulse Rate 93 H Respiratory 22 Rate Blood Pressure 97/65 97/65 Blood Pressure 97/65 [Right] O2 Sat by Pulse 98 98 94 Oximetry 05/31/19 05/31/19 05/31/19 04:02 04:05 04:34 Temperature 97.4 F L Pulse Rate 89 89 Respiratory 18 Rate Blood Pressure 97/66 Blood Pressure [Right] O2 Sat by Pulse 98 100 Oximetry General appearance: no acute distress, alert Eyes: non-icteric ENT: oropharynx moist Neck: supple Effort: normal Ascultation: Bilateral: rales Cardiovascular: regular rate and rhythm (no mrg) Gastrointestinal: normoactive bowel sounds, soft, non-tender, non-distended Integumentary: normal Extremities: no cyanosis, no edema, pink and warm normal mental status, non-focal exam, pupils equal and round, CN II-XII normal mood appropriate, affect normal Results - Laboratory Findings CBC and BMP: 05/30/19 20:53 05/30/19 20:53 ABG POC ABG pH 7.383 (7.35-7.45) 05/31/19 00:41 POC ABG pCO2 33.8 (35-45) L 05/31/19 00:41 POC ABG pO2 64 (80-105) L 05/31/19 00:41 POC ABG HCO3 20.1 (22-26 mml/L) 05/31/19 00:41 POC ABG Total CO2 21 (23-27mmol/L) 05/31/19 00:41 POC ABG O2 Sat 92 05/31/19 00:41 PT/INR, D-dimer PT 14.1 Sec. (12.2-14.9) 05/30/19 20:53 INR 1.12 (0.87-1.13) 05/30/19 20:53 330.84 ng/mlDDU (0-234) H 05/30/19 20:53 Abnormal lab findings: Abnormal Labs 05/30/19 05/30/19 05/30/19 20:53 20:53 20:53 Hgb 11.3 L Hct 33.7 L MCV 83 L RDW 18.6 H Lymph % (Auto) 6.5 L Lymph # 0.5 L Seg Neutrophils % 89.7 H D-Dimer 330.84 H POC ABG pCO2 POC ABG pO2 Sodium 133 L Chloride 95.8 L Carbon Dioxide 20 L Glucose 112 H POC Glucose Lactic Acid NT-Pro-B Natriuret Pep Albumin 3.6 L HDL Cholesterol Lipase 11 L Ur Specific [place] 05/30/19 05/30/19 05/30/19 20:53 20:53 22:46 Hgb Hct MCV RDW Lymph % (Auto) Lymph # Seg Neutrophils % D-Dimer POC ABG pCO2 POC ABG pO2 Sodium Chloride Carbon Dioxide Glucose POC Glucose Lactic Acid 3.00 H* 2.20 H* NT-Pro-B Natriuret Pep 16208 H Albumin HDL Cholesterol Lipase Ur Specific [place] 05/30/19 05/31/19 05/31/19 23:00 00:41 00:51 Hgb Hct MCV RDW Lymph % (Auto) Lymph # Seg Neutrophils % D-Dimer POC ABG pCO2 33.8 L POC ABG pO2 64 L Sodium Chloride Carbon Dioxide Glucose POC Glucose Lactic Acid 2.30 H* NT-Pro-B Natriuret Pep Albumin HDL Cholesterol Lipase Ur Specific [place] 1.041 H 05/31/19 05/31/19 05/31/19 03:44 06:32 11:53 Hgb Hct MCV RDW Lymph % (Auto) Lymph # Seg Neutrophils % D-Dimer POC ABG pCO2 POC ABG pO2 Sodium Chloride Carbon Dioxide Glucose POC Glucose 235 H 142 H Lactic Acid NT-Pro-B Natriuret Pep Albumin HDL Cholesterol 67 H Lipase Ur Specific [place] - Diagnostic Findings Chest x-ray: report reviewed, image reviewed CT scan - chest: report reviewed, image reviewed Assessment and Plan Imp: 1. ILD/pulm fibrosis with acute exac.; suspect due to chronic aspiration 2. Possible achalasia with severe GERD per PFH work-up 3. Chronic aspiration 2/2 #2 4. A/c respiratory failure, hypoxia 5. Pulm HTN, probably due to lung disease 6. Chest pain Rec: 1. Agree w/ Solumedrol; add ABX; the ground glass densities on CT may be due to pneumonia or fluid 2. He has only ever had CTA chest; needs HRCT at some point 3. CTD work-up already done; RF was positive; consider Rheum eval. as outpatient 4. HOB elevated 5. Consider anti-fibrotics as outpatient Plan of care reviewed w/ patient, he understands/agrees Thanks kindly for the consult.
[2019-05-31] MEDS: SODIUM CHLORIDE FLUSH SYRINGE 10 ML IV SCH (14:45)
--- NOTE | 2019-05-31 15:05 | Progress Note ---
Assessment and Plan Assessment and plan: 73-year-old -Citizen Of [place] male is a resident of [facility] with history of PTSD, DM 2, HTN, pulmonary hypertension, UT (03/07/19), anemia, pulmonary fibrosis, bronchiectasis, chronic respiratory failure on 2 L continuous supplemental oxygen who presents to [facility] ED with complaints of left- sided chest pain with radiation to left upper quadrant. Acute Chest Pain R/O ACS -Initiate chest pain protocol -Continuous telemetry monitoring -Continue supportive care -Pain mgmt -Troponin negative - on ASA and Statin -Hx of UT (02/2019) -Cardiology Consulted Exacerbation CHF -New onset -CXR showed Diffuse interstitial pulmonary edema -BNP elevated [id number] -Cardiology Consulted Acute on Chronic Hypoxic Respiratory Failure -Baseline oxygen 2L NC continuously -Oxygen saturation in the 80's on 2L NC -Currently on non-rebreather 10L -ABG 7.383/33.8/64/21 -On IV systemic steroids -Monitor saturations wean as tolerate ILD -Likely having ILD flare -Hx Bronchiectasis -Hx Pulmonary fibrosis -CT angio Chest showed Chronic changes are seen diffusely in the lung fatima -Continue supplemental oxygen -Continue systemic steroids -Pulmonary consulted Suspicion of PE Elevated d-dimer 330.84 -CTA negative for PE -PE ruled out DM2 -POC BG monitoring -SSI coverage prn Hypertension -Continue to monitor BP -Resume home antihypertensive meds to optimize BP once home medication rec onciliation has been completed Lactic acidosis -Lactic Acid 3.00 on admission repeat 1.9 -Received dose of empiric IV abx in ED -Afebrile -No leukocytosis -Continue to monitor DVT PPX -On Lovenox History Interval history: Patient was seen and developed this morning, patient was on non rebreather mask, 10L of oxygen. Hospitalist Physical - Physical exam Narrative exam: Patient is on non rebreather mask. The patient appeared well nourished and normally developed. Vital signs as documented. Head exam is unremarkable. No scleral icterus . Neck is without jugular venous distension, thyromegaly, or carotid bruits. Lungs are clear to auscultation. Cardiac exam reveals regular rate and Rhythm. Abdominal exam reveals normal bowel sounds, no masses, no organomegaly and no aortic enlargement. Extremities are nonedematous and both femoral and pedal pulses are normal. [employer]: Alert and oriented 3. No focal weakness. - Constitutional Vitals: Temp Pulse Resp BP Pulse Ox 97.4 F L 89 18 97/66 100 05/31/19 04:34 05/31/19 04:34 05/31/19 04:34 05/31/19 04:34 05/31/19 04:34 Results - Labs CBC & Chem 7: 05/30/19 20:53 05/30/19 20:53 Labs: Laboratory Last Values WBC 7.6 K/mm3 (4.5-11.0) 05/30/19 20:53 RBC 4.09 M/mm3 (3.65-5.03) 05/30/19 20:53 Hgb 11.3 gm/dl (11.8-15.2) L 05/30/19 20:53 Hct 33.7 % (35.5-45.6) L 05/30/19 20:53 MCV 83 fl (84-94) L 05/30/19 20:53 MCH 28 pg (28-32) 05/30/19 20:53 MCHC 34 % (32-34) 05/30/19 20:53 RDW 18.6 % (13.2-15.2) H 05/30/19 20:53 Plt Count 339 K/mm3 (140-440) 05/30/19 20:53 Lymph % (Auto) 6.5 % (13.4-35.0) L 05/30/19 20:53 [place] % (Auto) 3.4 % (0.0-7.3) 05/30/19 20:53 Eos % (Auto) 0.1 % (0.0-4.3) 05/30/19 20:53 Baso % (Auto) 0.3 % (0.0-1.8) 05/30/19 20:53 Lymph # 0.5 K/mm3 (1.2-5.4) L 05/30/19 20:53 [place] # 0.3 K/mm3 (0.0-0.8) 05/30/19 20:53 Eos # 0.0 K/mm3 (0.0-0.4) 05/30/19 20:53 Baso # 0.0 K/mm3 (0.0-0.1) 05/30/19 20:53 Seg Neutrophils % 89.7 % (40.0-70.0) H 05/30/19 20:53 Seg Neutrophils # 6.9 K/mm3 (1.8-7.7) 05/30/19 20:53 PT 14.1 Sec. (12.2-14.9) 05/30/19 20:53 INR 1.12 (0.87-1.13) 05/30/19 20:53 APTT 34.1 Sec. (24.2-36.6) 05/30/19 20:53 330.84 ng/mlDDU (0-234) H 05/30/19 20:53 POC ABG pH 7.383 (7.35-7.45) 05/31/19 00:41 POC ABG pCO2 33.8 (35-45) L 05/31/19 00:41 POC ABG pO2 64 (80-105) L 05/31/19 00:41 POC ABG HCO3 20.1 (22-26 mml/L) 05/31/19 00:41 POC ABG Total CO2 21 (23-27mmol/L) 05/31/19 00:41 POC ABG O2 Sat 92 05/31/19 00:41 POC ABG Base Excess -5 ((-2) - (+3)mmol/L) 05/31/19 00:41 36 % 05/31/19 00:41 Sodium 133 mmol/L (137-145) L 05/30/19 20:53 Potassium 4.7 mmol/L (3.6-5.0) 05/30/19 20:53 Chloride 95.8 mmol/L (98-107) L 05/30/19 20:53 Carbon Dioxide 20 mmol/L (22-30) L 05/30/19 20:53 22 mmol/L 05/30/19 20:53 BUN 18 mg/dL (9-20) 05/30/19 20:53 1.4 mg/dL (0.8-1.5) 05/30/19 20:53 Estimated GFR 50 ml/min 05/30/19 20:53 13 % 05/30/19 20:53 Glucose 112 mg/dL (75-100) H 05/30/19 20:53 POC Glucose 138 (70-105) H 05/31/19 14:08 Lactic Acid 1.90 mmol/L (0.7-2.0) 05/31/19 03:44 Calcium 9.2 mg/dL (8.4-10.2) 05/30/19 20:53 0.30 mg/dL (0.1-1.2) 05/30/19 20:53 AST 14 units/L (5-40) 05/30/19 20:53 ALT 8 units/L (7-56) 05/30/19 20:53 91 units/L (35-129) 05/30/19 20:53 0.011 ng/mL (0.00-0.029) 05/31/19 00:51 NT-Pro-B Natriuret Pep 32393 pg/mL (0-900) H 05/30/19 20:53 7.1 g/dL (6.3-8.2) 05/30/19 20:53 3.6 g/dL (3.9-5) L 05/30/19 20:53 1.0 % 05/30/19 20:53 Triglycerides 74 mg/dL (2-149) 05/31/19 03:44 Cholesterol 182 mg/dL (50-199) 05/31/19 03:44 117 mg/dL (50-130) 05/31/19 03:44 67 mg/dL (40-59) H 05/31/19 03:44 2.71 % 05/31/19 03:44 11 units/L (13-60) L 05/30/19 20:53 Yellow (Yellow) 05/30/19 23:00 Slightly-cloudy (Clear) 05/30/19 23:00 5.0 (5.0-7.0) 05/30/19 23:00 Ur Specific [place] 1.041 (1.003-1.030) H 05/30/19 23:00 <15 mg/dl mg/dL (Negative) 05/30/19 23:00 Neg mg/dL (Negative) 05/30/19 23:00 Neg mg/dL (Negative) 05/30/19 23:00 Neg (Negative) 05/30/19 23:00 Neg (Negative) 05/30/19 23:00 Neg (Negative) 05/30/19 23:00 < 2.0 mg/dL (<2.0) 05/30/19 23:00 Ur Leukocyte Esterase Neg (Negative) 05/30/19 23:00 4.0 /HPF (0.0-6.0) 05/30/19 23:00 < 1.0 /HPF (0.0-6.0) 05/30/19 23:00 U Epithel Cells (Auto) 1.0 /HPF (0-13.0) 05/30/19 23:00 Hyaline Casts 5 /LPF 05/30/19 23:00 Few /HPF 05/30/19 23:00 Active Medications - Current Medications Current Medications: Generic Name Dose Route Start Last Admin Trade Name Freq PRN Reason Stop Dose Admin Acetaminophen 650 mg 05/31/19 00:07 Tylenol PO Q4H PRN Pain MILD(1-3)/Fever >100.5/CARSON Albuterol 2.5 mg 05/30/19 23:55 Proventil IH Q3HRT PRN Shortness Of Breath Aspirin 81 mg 06/01/19 10:00 Baby Aspirin PO QDAY [facility] Atorvastatin Calcium 40 mg 05/31/19 22:00 Lipitor PO QHS SINDI Dextrose 50 ml 05/31/19 00:07 D50w (25gm) Syringe IV PRN PRN Hypoglycemia Enoxaparin Sodium 40 mg 05/31/19 10:00 05/31/19 14:42 Lovenox SUB-Q 40 mg QDAY@1000 S[facility]I Administration Hydromorphone HCl 0.5 mg 05/31/19 00:07 Dilaudid IV Q3H PRN Pain , Severe (7-10) Methylprednisolone Sodium Succinate 60 mg 05/31/19 06:00 05/31/19 14:43 Solu-Medrol IV 60 mg Q8HR SINDI Administration Morphine Sulfate 2 mg 05/31/19 00:07 05/31/19 14:43 Morphine IV 2 mg Q4H PRN Administration Pain, Moderate (4-6) Ondansetron HCl 4 mg 05/31/19 00:07 Zofran IV Q6H PRN Nausea And Vomiting Sodium Chloride 10 ml 05/31/19 10:00 05/31/19 14:45 Sodium Chloride Flush Syringe 10 Ml IV 10 ml BID [facility]I Administration Sodium Chloride 10 ml 05/31/19 00:07 Sodium Chloride Flush Syringe 10 Ml IV PRN PRN LINE FLUSH
[2019-05-31] MEDS: LASIX PO SCH (18:33)
[2019-05-31] MEDS: PLAVIX PO SCH (18:33)
[2019-05-31] MEDS: LOVENOX SUB-Q SCH (21:51)
[2019-05-31] MEDS: LOPRESSOR PO SCH (22:15)
[2019-06-01] MEDS: TYLENOL PO PRN (01:16)
[2019-06-01] MEDS: LASIX PO SCH ×2 (05:35→17:21)
[2019-06-01] MEDS: SOLU-Medrol IV SCH ×3 (05:37→22:39)
[2019-06-01] MEDS: MORPHINE IV PRN ×3 (05:37→16:54)
[2019-06-01 06:45] LABS: Basophils % (Auto) 0.1 % (0.0-1.8); Hematocrit 31.4 % (35.5-45.6); Hemoglobin 10.5 gm/dl (11.8-15.2); Lymphocytes # (Auto) 0.5 K/mm3 (1.2-5.4); Lymphocytes % (Auto) 6.3 % (13.4-35.0); Mean Corpuscular HGB Conc 34 % (32-34); Mean Corpuscular Volume 82 fl (84-94); Monocytes # (Auto) 0.3 K/mm3 (0.0-0.8); Monocytes % (Auto) 4.3 % (0.0-7.3); Platelet Count 316 K/mm3 (140-440); Red Blood Count 3.82 M/mm3 (3.65-5.03); Red Cell Distribution Width 18.6 % (13.2-15.2)
[2019-06-01 07:19] LABS: BUN/Creatinine Ratio 25; Blood Urea Nitrogen 27 mg/dL (9-20); Calcium 9.4 mg/dL (8.4-10.2); Hemolysis Index 6
[2019-06-01] MEDS: SODIUM CHLORIDE FLUSH SYRINGE 10 ML IV SCH ×3 (08:01→22:39)
[2019-06-01] MEDS: LOVENOX SUB-Q SCH ×2 (09:06→22:37)
[2019-06-01] MEDS: BABY ASPIRIN PO SCH (09:06)
[2019-06-01] MEDS: PLAVIX PO SCH (09:06)
[2019-06-01] MEDS: LOPRESSOR PO SCH ×2 (09:07→22:40)
--- NOTE | 2019-06-01 09:22 | Progress Note ---
Assessment and Plan Chest pain - reason for admission Acute heart failure with preserved EF (60% based on recent echo) Abnormal ECG consistent with ischemic heart disease Prior history of PEA arrest at [facility] treated conservatively due to multiple comorbidities Pulmonary fibrosis on Home O2 PTSD and anxiety disorder Recommendations: aspirin, plavix, Lovenox 1 mg/Kg SC bid, statins, metoprolol, lasix Eventual myocardial ischemia evaluation Further plan depends on clinical course Subjective Date of service: 06/01/19 Interval history: No acute events Objective Vital Signs Temp Pulse Resp Resp Resp BP Pulse Ox 06/01/19 08:50 82 06/01/19 08:36 98.2 F 63 18 105/71 99 06/01/19 05:37 20 06/01/19 04:16 98.5 F 70 18 104/65 100 06/01/19 04:00 20 06/01/19 02:20 96 06/01/19 01:16 18 06/01/19 00:43 98.2 F 68 18 111/75 100 06/01/19 00:00 18 18 05/31/19 22:53 97 05/31/19 22:52 18 05/31/19 22:22 20 05/31/19 22:15 91 H 111/70 05/31/19 19:39 98.0 F 103 H 18 102/73 95 05/31/19 15:25 98 05/31/19 11:44 98.5 F 96 H 18 103/73 97 - Physical Examination HEENT: Positive: PERRL Neck: Positive: trachea midline Cardiac: Positive: Reg Rate and Rhythm Lungs: Positive: Rales, Wheezes (scattered fine crackles) Extremities: Absent: edema - Labs and Meds CBC 06/01/19 Range/Units 05:06 WBC 8.0 (4.5-11.0) K/mm3 RBC 3.82 (3.65-5.03) M/mm3 Hgb 10.5 L (11.8-15.2) gm/dl Hct 31.4 L (35.5-45.6) % Plt Count 316 (140-440) K/mm3 Lymph # 0.5 L (1.2-5.4) K/mm3 [place] # 0.3 (0.0-0.8) K/mm3 Eos # 0.0 (0.0-0.4) K/mm3 Baso # 0.0 (0.0-0.1) K/mm3 Comprehensive Metabolic Panel 06/01/19 Range/Units 05:06 Sodium 138 (137-145) mmol/L Potassium 4.7 (3.6-5.0) mmol/L Chloride 99.4 (98-107) mmol/L Carbon Dioxide 23 (22-30) mmol/L BUN 27 H (9-20) mg/dL Creatinine 1.1 (0.8-1.5) mg/dL Glucose 123 H (75-100) mg/dL Calcium 9.4 (8.4-10.2) mg/dL
[2019-06-01] MEDS: LEVAQUIN 750MG/150ML 750 MG/150 ML BAG IV SCH (09:46)
--- NOTE | 2019-06-01 13:37 | Progress Note ---
Assessment and Plan Assessment and plan: 73-year-old -[place] male is a resident of [facility] with history of PTSD, DM 2, HTN, pulmonary hypertension, [place] (03/07/19), anemia, pulmonary fibrosis, bronchiectasis, chronic respiratory failure on 2 L continuous supplemental oxygen who presents to [facility] ED with complaints of left- sided chest pain with radiation to left upper quadrant. Acute Chest Pain R/O ACS -Initiate chest pain protocol -Continuous telemetry monitoring -Continue supportive care -Pain mgmt -Troponin negative - on ASA and Statin -Hx of [place] (02/2019) -Cardiology Consulted and recommended to do ischemic workup before discharge Exacerbation CHF -New onset -CXR showed Diffuse interstitial pulmonary edema -BNP elevated [id number] -Cardiology Consulted Acute on Chronic Hypoxic Respiratory Failure -Baseline oxygen 2L NC continuously -Oxygen saturation in the 80's on 2L NC -Currently on non-rebreather 10L -ABG 7.383/33.8/64/21 -On IV systemic steroids -Monitor saturations wean as tolerate ILD -Likely having ILD flare -Hx Bronchiectasis -Hx Pulmonary fibrosis -CT angio Chest showed Chronic changes are seen diffusely in the lung fatima -Continue supplemental oxygen -Continue systemic steroids -Pulmonary consulted Suspicion of PE Elevated d-dimer 330.84 -CTA negative for PE -PE ruled out DM2 -POC BG monitoring -SSI coverage prn Hypertension -Continue to monitor BP -Resume home antihypertensive meds to optimize BP once home medication reconciliation has been completed Lactic acidosis -Lactic Acid 3.00 on admission repeat 1.9 -Received dose of empiric IV abx in ED -Afebrile -No leukocytosis -Continue to monitor DVT PPX -On Lovenox History Interval history: Patient was seen and developed this morning, patient was on non rebreather mask, 10L of oxygen. Hospitalist Physical - Physical exam Narrative exam: Patient is on non rebreather mask. The patient appeared well nourished and normally developed. Vital signs as documented. Head exam is unremarkable. No scleral icterus . Neck is without jugular venous distension, thyromegaly, or carotid bruits. Lungs are clear to auscultation. Cardiac exam reveals regular rate and Rhythm. Abdominal exam reveals normal bowel sounds, no masses, no organomegaly and no aortic enlargement. Extremities are nonedematous and both femoral and pedal pulses are normal. 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 No focal weakness. - Constitutional Vitals: Temp Pulse Resp BP Pulse Ox 97.9 F 58 L 18 92/66 100 06/01/19 12:34 06/01/19 12:34 06/01/19 12:34 06/01/19 12:34 06/01/19 12:34 General appearance: Present: mild distress Results - Labs CBC & Chem 7: 06/01/19 05:06 06/01/19 05:06 Labs: Laboratory Last Values WBC 8.0 K/mm3 (4.5-11.0) 06/01/19 05:06 RBC 3.82 M/mm3 (3.65-5.03) 06/01/19 05:06 Hgb 10.5 gm/dl (11.8-15.2) L 06/01/19 05:06 Hct 31.4 % (35.5-45.6) L 06/01/19 05:06 MCV 82 fl (84-94) L 06/01/19 05:06 MCH 28 pg (28-32) 06/01/19 05:06 MCHC 34 % (32-34) 06/01/19 05:06 RDW 18.6 % (13.2-15.2) H 06/01/19 05:06 Plt Count 316 K/mm3 (140-440) 06/01/19 05:06 Lymph % (Auto) 6.3 % (13.4-35.0) L 06/01/19 05:06 [place] % (Auto) 4.3 % (0.0-7.3) 06/01/19 05:06 Eos % (Auto) 0.0 % (0.0-4.3) 06/01/19 05:06 Baso % (Auto) 0.1 % (0.0-1.8) 06/01/19 05:06 Lymph # 0.5 K/mm3 (1.2-5.4) L 06/01/19 05:06 [place] # 0.3 K/mm3 (0.0-0.8) 06/01/19 05:06 Eos # 0.0 K/mm3 (0.0-0.4) 06/01/19 05:06 Baso # 0.0 K/mm3 (0.0-0.1) 06/01/19 05:06 Seg Neutrophils % 89.3 % (40.0-70.0) H 06/01/19 05:06 Seg Neutrophils # 7.2 K/mm3 (1.8-7.7) 06/01/19 05:06 PT 14.1 Sec. (12.2-14.9) 05/30/19 20:53 INR 1.12 (0.87-1.13) 05/30/19 20:53 APTT 34.1 Sec. (24.2-36.6) 05/30/19 20:53 330.84 ng/mlDDU (0-234) H 05/30/19 20:53 POC ABG pH 7.383 (7.35-7.45) 05/31/19 00:41 POC ABG pCO2 33.8 (35-45) L 05/31/19 00:41 POC ABG pO2 64 (80-105) L 05/31/19 00:41 POC ABG HCO3 20.1 (22-26 mml/L) 05/31/19 00:41 POC ABG Total CO2 21 (23-27mmol/L) 05/31/19 00:41 POC ABG O2 Sat 92 05/31/19 00:41 POC ABG Base Excess -5 ((-2) - (+3)mmol/L) 05/31/19 00:41 36 % 05/31/19 00:41 Sodium 138 mmol/L (137-145) 06/01/19 05:06 Potassium 4.7 mmol/L (3.6-5.0) 06/01/19 05:06 Chloride 99.4 mmol/L (98-107) 06/01/19 05:06 Carbon Dioxide 23 mmol/L (22-30) 06/01/19 05:06 20 mmol/L 06/01/19 05:06 BUN 27 mg/dL (9-20) H 06/01/19 05:06 1.1 mg/dL (0.8-1.5) 06/01/19 05:06 Estimated GFR > 60 ml/min 06/01/19 05:06 25 % 06/01/19 05:06 Glucose 123 mg/dL (75-100) H 06/01/19 05:06 POC Glucose 121 (70-105) H 06/01/19 12:40 Lactic Acid 1.90 mmol/L (0.7-2.0) 05/31/19 03:44 Calcium 9.4 mg/dL (8.4-10.2) 06/01/19 05:06 0.30 mg/dL (0.1-1.2) 05/30/19 20:53 AST 14 units/L (5-40) 05/30/19 20:53 ALT 8 units/L (7-56) 05/30/19 20:53 91 units/L (35-129) 05/30/19 20:53 0.011 ng/mL (0.00-0.029) 05/31/19 00:51 NT-Pro-B Natriuret Pep 10405 pg/mL (0-900) H 05/30/19 20:53 7.1 g/dL (6.3-8.2) 05/30/19 20:53 3.6 g/dL (3.9-5) L 05/30/19 20:53 1.0 % 05/30/19 20:53 Triglycerides 74 mg/dL (2-149) 05/31/19 03:44 Cholesterol 182 mg/dL (50-199) 05/31/19 03:44 117 mg/dL (50-130) 05/31/19 03:44 67 mg/dL (40-59) H 05/31/19 03:44 2.71 % 05/31/19 03:44 11 units/L (13-60) L 05/30/19 20:53 Yellow (Yellow) 05/30/19 23:00 Slightly-cloudy (Clear) 05/30/19 23:00 5.0 (5.0-7.0) 05/30/19 23:00 Ur Specific [place] 1.041 (1.003-1.030) H 05/30/19 23:00 <15 mg/dl mg/dL (Negative) 05/30/19 23:00 Neg mg/dL (Negative) 05/30/19 23:00 Neg mg/dL (Negative) 05/30/19 23:00 Neg (Negative) 05/30/19 23:00 Neg (Negative) 05/30/19 23:00 Neg (Negative) 05/30/19 23:00 < 2.0 mg/dL (<2.0) 05/30/19 23:00 Ur Leukocyte Esterase Neg (Negative) 05/30/19 23:00 4.0 /HPF (0.0-6.0) 05/30/19 23:00 < 1.0 /HPF (0.0-6.0) 05/30/19 23:00 U Epithel Cells (Auto) 1.0 /HPF (0-13.0) 05/30/19 23:00 Hyaline Casts 5 /LPF 05/30/19 23:00 Few /HPF 05/30/19 23:00 Active Medications - Current Medications Current Medications: Generic Name Dose Route Start Last Admin Trade Name Freq PRN Reason Stop Dose Admin Acetaminophen 650 mg 05/31/19 00:07 06/01/19 01:16 Tylenol PO 650 mg Q4H PRN Administration Pain MILD(1-3)/Fever >100.5/CARSON Albuterol 2.5 mg 05/30/19 23:55 Proventil IH Q3HRT PRN Shortness Of Breath Aspirin 81 mg 06/01/19 10:00 06/01/19 09:06 Baby Aspirin PO 81 mg QDAY SINDI Administration Atorvastatin Calcium 40 mg 05/31/19 22:00 05/31/19 22:20 Lipitor PO 40 mg QHS SINDI Administration Clopidogrel Bisulfate 75 mg 05/31/19 17:00 06/01/19 09:06 Plavix PO 75 mg QDAY SINDI Administration Dextrose 50 ml 05/31/19 00:07 D50w (25gm) Syringe IV PRN PRN Hypoglycemia Enoxaparin Sodium 70 mg 05/31/19 22:00 06/01/19 09:06 Lovenox 1 mg/kg (70 mg) 70 mg SUB-Q Administration Q12HR SINDI Furosemide 20 mg 05/31/19 18:00 06/01/19 05:35 Lasix PO 20 mg 0600,1800 SINDI Administration Hydromorphone HCl 0.5 mg 05/31/19 00:07 Dilaudid IV Q3H PRN Pain , Severe (7-10) Levofloxacin/Dextrose 750 mg in 150 mls @ 100 mls/hr 06/01/19 10:00 06/01/19 09:46 Levaquin 750mg/150ml IV 100 mls/hr Q24HR SINDI Administration Protocol Methylprednisolone Sodium Succinate 60 mg 05/31/19 06:00 06/01/19 05:37 Solu-Medrol IV 60 mg Q8HR SINDI Administration Metoprolol Tartrate 12.5 mg 05/31/19 22:00 06/01/19 09:07 Lopressor PO 12.5 mg BID SINDI Administration Morphine Sulfate 2 mg 05/31/19 00:07 06/01/19 11:20 Morphine IV 2 mg Q4H PRN Administration Pain, Moderate (4-6) Ondansetron HCl 4 mg 05/31/19 00:07 Zofran IV Q6H PRN Nausea And Vomiting Sodium Chloride 10 ml 05/31/19 10:00 06/01/19 11:20 Sodium Chloride Flush Syringe 10 Ml IV 10 ml BID SINDI Administration Sodium Chloride 10 ml 05/31/19 00:07 Sodium Chloride Flush Syringe 10 Ml IV PRN PRN LINE FLUSH
--- NOTE | 2019-06-01 14:08 | Progress Note ---
Assessment and Plan Imp: 1. ILD/pulm fibrosis with acute exac.; suspect due to chronic aspiration 2. Possible achalasia with severe GERD per PFH work-up 3. Chronic aspiration 2/2 #2 4. A/c respiratory failure, hypoxia 5. Pulm HTN, probably due to lung disease 6. Chest pain Rec: 1. Agree w/ Solumedrol; add ABX; the ground glass densities on CT may be due to pneumonia or fluid 2. He has only ever had CTA chest; needs HRCT at some point 3. CTD work-up already done; RF was positive; consider Rheum eval. as outpatient 4. HOB elevated 5. Consider anti-fibrotics as outpatient Subjective Date of service: 06/01/19 Interval history: Patient feeling better. Denied any significant shortness of breath at rest. Objective Vital Signs - 12hr 06/01/19 06/01/19 06/01/19 02:20 04:00 04:16 Temperature 98.5 F Pulse Rate 70 Pulse Rate [ Apical] Pulse Rate [ From Monitor] Pulse Rate [ Left Radial] Pulse Rate [ Right Radial] Respiratory 20 18 Rate Blood Pressure 104/65 O2 Sat by Pulse 96 100 Oximetry 06/01/19 06/01/19 06/01/19 05:37 08:36 08:50 Temperature 98.2 F Pulse Rate 63 82 Pulse Rate [ Apical] Pulse Rate [ From Monitor] Pulse Rate [ Left Radial] Pulse Rate [ Right Radial] Respiratory 20 18 Rate Blood Pressure 105/71 O2 Sat by Pulse 99 Oximetry 06/01/19 06/01/19 06/01/19 10:24 11:17 12:34 Temperature 97.9 F Pulse Rate 58 L Pulse Rate [ 63 Apical] Pulse Rate [ 62 From Monitor] Pulse Rate [ 63 Left Radial] Pulse Rate [ 63 Right Radial] Respiratory 20 18 Rate Blood Pressure 92/66 O2 Sat by Pulse 98 100 100 Oximetry Constitutional: no acute distress, alert Eyes: non-icteric ENT: oropharynx moist Neck: supple Effort: normal Ascultation: Bilateral: rales Cardiovascular: regular rate and rhythm (no mrg) Gastrointestinal: normoactive bowel sounds, soft, non-tender, non-distended Integumentary: normal Extremities: no cyanosis, no edema, pink and warm Neurologic: normal mental status, non-focal exam, pupils equal and round, CN II- XII normal Psychiatric: mood appropriate, affect normal CBC and BMP: 06/01/19 05:06 06/01/19 05:06 ABG, PT/INR, D-dimer: ABG POC ABG pH 7.383 (7.35-7.45) 05/31/19 00:41 POC ABG pCO2 33.8 (35-45) L 05/31/19 00:41 POC ABG pO2 64 (80-105) L 05/31/19 00:41 POC ABG HCO3 20.1 (22-26 mml/L) 05/31/19 00:41 POC ABG Total CO2 21 (23-27mmol/L) 05/31/19 00:41 POC ABG O2 Sat 92 05/31/19 00:41 PT/INR, D-dimer PT 14.1 Sec. (12.2-14.9) 05/30/19 20:53 INR 1.12 (0.87-1.13) 05/30/19 20:53 330.84 ng/mlDDU (0-234) H 05/30/19 20:53 Abnormal lab findings: Abnormal Labs 05/30/19 05/30/19 05/30/19 20:53 20:53 20:53 Hgb 11.3 L Hct 33.7 L MCV 83 L RDW 18.6 H Lymph % (Auto) 6.5 L Lymph # 0.5 L Seg Neutrophils % 89.7 H D-Dimer 330.84 H POC ABG pCO2 POC ABG pO2 Sodium 133 L Chloride 95.8 L Carbon Dioxide 20 L BUN Glucose 112 H POC Glucose Lactic Acid NT-Pro-B Natriuret Pep Albumin 3.6 L HDL Cholesterol Lipase 11 L Ur Specific [place] 05/30/19 05/30/19 05/30/19 20:53 20:53 22:46 Hgb Hct MCV RDW Lymph % (Auto) Lymph # Seg Neutrophils % D-Dimer POC ABG pCO2 POC ABG pO2 Sodium Chloride Carbon Dioxide BUN Glucose POC Glucose Lactic Acid 3.00 H* 2.20 H* NT-Pro-B Natriuret Pep 03517 H Albumin HDL Cholesterol Lipase Ur Specific [place] 05/30/19 05/31/19 05/31/19 23:00 00:41 00:51 Hgb Hct MCV RDW Lymph % (Auto) Lymph # Seg Neutrophils % D-Dimer POC ABG pCO2 33.8 L POC ABG pO2 64 L Sodium Chloride Carbon Dioxide BUN Glucose POC Glucose Lactic Acid 2.30 H* NT-Pro-B Natriuret Pep Albumin HDL Cholesterol Lipase Ur Specific [place] 1.041 H 05/31/19 05/31/19 05/31/19 03:44 06:32 11:53 Hgb Hct MCV RDW Lymph % (Auto) Lymph # Seg Neutrophils % D-Dimer POC ABG pCO2 POC ABG pO2 Sodium Chloride Carbon Dioxide BUN Glucose POC Glucose 235 H 142 H Lactic Acid NT-Pro-B Natriuret Pep Albumin HDL Cholesterol 67 H Lipase Ur Specific [place] 05/31/19 05/31/19 06/01/19 14:08 18:04 01:13 Hgb Hct MCV RDW Lymph % (Auto) Lymph # Seg Neutrophils % D-Dimer POC ABG pCO2 POC ABG pO2 Sodium Chloride Carbon Dioxide BUN Glucose POC Glucose 138 H 112 H 109 H Lactic Acid NT-Pro-B Natriuret Pep Albumin HDL Cholesterol Lipase Ur Specific [place] 06/01/19 06/01/19 06/01/19 05:06 05:06 06:19 Hgb 10.5 L Hct 31.4 L MCV 82 L RDW 18.6 H Lymph % (Auto) 6.3 L Lymph # 0.5 L Seg Neutrophils % 89.3 H D-Dimer POC ABG pCO2 POC ABG pO2 Sodium Chloride Carbon Dioxide BUN 27 H Glucose 123 H POC Glucose 133 H Lactic Acid NT-Pro-B Natriuret Pep Albumin HDL Cholesterol Lipase Ur Specific [place] 06/01/19 12:40 Hgb Hct MCV RDW Lymph % (Auto) Lymph # Seg Neutrophils % D-Dimer POC ABG pCO2 POC ABG pO2 Sodium Chloride Carbon Dioxide BUN Glucose POC Glucose 121 H Lactic Acid NT-Pro-B Natriuret Pep Albumin HDL Cholesterol Lipase Ur Specific [place]
[2019-06-01] MEDS ORDERED: ATIVAN IV ONE (22:12)
[2019-06-02] MEDS: SOLU-Medrol IV SCH ×3 (06:26→22:13)
[2019-06-02] MEDS: LASIX PO SCH ×2 (06:26→17:36)
[2019-06-02] MEDS: LEVAQUIN 750MG/150ML 750 MG/150 ML BAG IV SCH (09:57)
[2019-06-02] MEDS: LOVENOX SUB-Q SCH ×2 (09:57→22:12)
[2019-06-02] MEDS: PLAVIX PO SCH (09:58)
[2019-06-02] MEDS: LOPRESSOR PO SCH ×2 (09:58→22:13)
[2019-06-02] MEDS: BABY ASPIRIN PO SCH (09:58)
[2019-06-02] MEDS: SODIUM CHLORIDE FLUSH SYRINGE 10 ML IV SCH ×2 (10:25→23:55)
--- NOTE | 2019-06-02 11:05 | Progress Note ---
Assessment and Plan Chest pain - reason for admission Abnormal ECG consistent with ischemic heart disease Prior history of PEA arrest at [facility] treated conservatively due to multiple comorbidities Pulmonary fibrosis/ILD on Home O2 PTSD and anxiety disorder Recommendations: Continue current therapy. Eventual myocardial ischemia evaluation Further plan (LHC vs MPI) depends on clinical course Subjective Date of service: 06/02/19 Interval history: Pt reports dyspnea and chest pain have improved. Objective Vital Signs Temp Pulse Pulse Resp BP Pulse Ox 06/02/19 09:58 65 113/76 06/02/19 08:16 64 06/02/19 07:40 98.6 F 65 18 113/76 98 06/02/19 04:39 97.4 F L 73 18 99/71 99 06/02/19 01:08 95 06/01/19 23:48 98.0 F 67 22 98/65 96 06/01/19 23:07 66 22 95 06/01/19 22:40 68 99/71 06/01/19 22:38 71 94 06/01/19 22:00 84 68 20 97 06/01/19 20:31 98.1 F 71 20 94/66 95 06/01/19 15:27 97.9 F 79 18 97/61 98 06/01/19 12:34 97.9 F 58 L 18 92/66 100 06/01/19 11:17 100 - Physical Examination HEENT: Positive: PERRL Neck: Positive: trachea midline Cardiac: Positive: Reg Rate and Rhythm Lungs: Positive: Rales Extremities: Absent: edema
--- NOTE | 2019-06-02 13:08 | Progress Note ---
Assessment and Plan Imp: 1. ILD/pulm fibrosis with acute exac.; suspect due to chronic aspiration 2. Possible achalasia with severe GERD per PFH work-up 3. Chronic aspiration 2/2 #2 4. A/c respiratory failure, hypoxia 5. Pulm HTN, probably due to lung disease 6. Chest pain 7. Left upper quadrant abdominal pain appears to be benign Rec: 1. Agree w/ Solumedrol; add ABX; the ground glass densities on CT may be due to pneumonia or fluid 2. He has only ever had CTA chest; needs HRCT at some point 3. CTD work-up already done; RF was positive; consider Rheum eval. as outpatient 4. HOB elevated 5. Consider anti-fibrotics as outpatient 6. Consider laxative for constipation Subjective Date of service: 06/02/19 Interval history: Patient feeling better. Denied any significant shortness of breath at rest. Patient complain of intermittent left upper quadrant abdominal sharp pain suggestive of cramping. No nausea vomiting or any other symptoms. Patient is constipated. Objective Vital Signs - 12hr 06/02/19 06/02/19 06/02/19 01:08 04:39 07:40 Temperature 97.4 F L 98.6 F Pulse Rate 73 65 Pulse Rate [ Apical] Pulse Rate [ From Monitor] Pulse Rate [ Left Radial] Pulse Rate [ Right Radial] Respiratory 18 18 Rate Respiratory Rate [Left Shoulder] Blood Pressure 99/71 113/76 O2 Sat by Pulse 95 99 98 Oximetry 06/02/19 06/02/19 06/02/19 08:16 09:58 10:00 Temperature Pulse Rate 64 65 Pulse Rate [ 66 Apical] Pulse Rate [ 66 From Monitor] Pulse Rate [ 66 Left Radial] Pulse Rate [ 66 Right Radial] Respiratory 18 Rate Respiratory Rate [Left Shoulder] Blood Pressure 113/76 O2 Sat by Pulse 98 Oximetry 06/02/19 06/02/19 12:00 12:16 Temperature 98.2 F Pulse Rate 80 Pulse Rate [ Apical] Pulse Rate [ From Monitor] Pulse Rate [ Left Radial] Pulse Rate [ Right Radial] Respiratory 18 Rate Respiratory 18 Rate [Left Shoulder] Blood Pressure 113/81 O2 Sat by Pulse 97 Oximetry Constitutional: no acute distress, alert Eyes: non-icteric ENT: oropharynx moist Neck: supple Effort: normal Ascultation: Bilateral: rales Cardiovascular: regular rate and rhythm (no mrg) Gastrointestinal: normoactive bowel sounds, soft, non-tender, non-distended Integumentary: normal Extremities: no cyanosis, no edema, pink and warm Neurologic: normal mental status, non-focal exam, pupils equal and round, CN II- XII normal Psychiatric: mood appropriate, affect normal CBC and BMP: 06/01/19 05:06 06/01/19 05:06 ABG, PT/INR, D-dimer: ABG POC ABG pH 7.383 (7.35-7.45) 05/31/19 00:41 POC ABG pCO2 33.8 (35-45) L 05/31/19 00:41 POC ABG pO2 64 (80-105) L 05/31/19 00:41 POC ABG HCO3 20.1 (22-26 mml/L) 05/31/19 00:41 POC ABG Total CO2 21 (23-27mmol/L) 05/31/19 00:41 POC ABG O2 Sat 92 05/31/19 00:41 PT/INR, D-dimer PT 14.1 Sec. (12.2-14.9) 05/30/19 20:53 INR 1.12 (0.87-1.13) 05/30/19 20:53 330.84 ng/mlDDU (0-234) H 05/30/19 20:53 Abnormal lab findings: Abnormal Labs 05/30/19 05/30/19 05/30/19 20:53 20:53 20:53 Hgb 11.3 L Hct 33.7 L MCV 83 L RDW 18.6 H Lymph % (Auto) 6.5 L Lymph # 0.5 L Seg Neutrophils % 89.7 H D-Dimer 330.84 H POC ABG pCO2 POC ABG pO2 Sodium 133 L Chloride 95.8 L Carbon Dioxide 20 L BUN Glucose 112 H POC Glucose Lactic Acid NT-Pro-B Natriuret Pep Albumin 3.6 L HDL Cholesterol Lipase 11 L Ur Specific [place] 05/30/19 05/30/19 05/30/19 20:53 20:53 22:46 Hgb Hct MCV RDW Lymph % (Auto) Lymph # Seg Neutrophils % D-Dimer POC ABG pCO2 POC ABG pO2 Sodium Chloride Carbon Dioxide BUN Glucose POC Glucose Lactic Acid 3.00 H* 2.20 H* NT-Pro-B Natriuret Pep 70480 H Albumin HDL Cholesterol Lipase Ur Specific [place] 05/30/19 05/31/19 05/31/19 23:00 00:41 00:51 Hgb Hct MCV RDW Lymph % (Auto) Lymph # Seg Neutrophils % D-Dimer POC ABG pCO2 33.8 L POC ABG pO2 64 L Sodium Chloride Carbon Dioxide BUN Glucose POC Glucose Lactic Acid 2.30 H* NT-Pro-B Natriuret Pep Albumin HDL Cholesterol Lipase Ur Specific [place] 1.041 H 05/31/19 05/31/19 05/31/19 03:44 06:32 11:53 Hgb Hct MCV RDW Lymph % (Auto) Lymph # Seg Neutrophils % D-Dimer POC ABG pCO2 POC ABG pO2 Sodium Chloride Carbon Dioxide BUN Glucose POC Glucose 235 H 142 H Lactic Acid NT-Pro-B Natriuret Pep Albumin HDL Cholesterol 67 H Lipase Ur Specific [place] 05/31/19 05/31/19 06/01/19 14:08 18:04 01:13 Hgb Hct MCV RDW Lymph % (Auto) Lymph # Seg Neutrophils % D-Dimer POC ABG pCO2 POC ABG pO2 Sodium Chloride Carbon Dioxide BUN Glucose POC Glucose 138 H 112 H 109 H Lactic Acid NT-Pro-B Natriuret Pep Albumin HDL Cholesterol Lipase Ur Specific [place] 06/01/19 06/01/19 06/01/19 05:06 05:06 06:19 Hgb 10.5 L Hct 31.4 L MCV 82 L RDW 18.6 H Lymph % (Auto) 6.3 L Lymph # 0.5 L Seg Neutrophils % 89.3 H D-Dimer POC ABG pCO2 POC ABG pO2 Sodium Chloride Carbon Dioxide BUN 27 H Glucose 123 H POC Glucose 133 H Lactic Acid NT-Pro-B Natriuret Pep Albumin HDL Cholesterol Lipase Ur Specific [place] 06/01/19 06/01/19 06/01/19 12:40 15:38 22:08 Hgb Hct MCV RDW Lymph % (Auto) Lymph # Seg Neutrophils % D-Dimer POC ABG pCO2 POC ABG pO2 Sodium Chloride Carbon Dioxide BUN Glucose POC Glucose 121 H 157 H 163 H Lactic Acid NT-Pro-B Natriuret Pep Albumin HDL Cholesterol Lipase Ur Specific [place] 06/02/19 06/02/19 06:33 12:23 Hgb Hct MCV RDW Lymph % (Auto) Lymph # Seg Neutrophils % D-Dimer POC ABG pCO2 POC ABG pO2 Sodium Chloride Carbon Dioxide BUN Glucose POC Glucose 141 H 173 H Lactic Acid NT-Pro-B Natriuret Pep Albumin HDL Cholesterol Lipase Ur Specific [place]
[2019-06-02] MEDS: MORPHINE IV PRN ×2 (13:12→18:44)
[2019-06-02] MEDS ORDERED: XANAX 0.25 MG PO PRN (16:18)
--- NOTE | 2019-06-02 16:21 | Progress Note ---
Assessment and Plan 73-year-old -[place] male is a resident of [facility] with history of PTSD, DM 2, HTN, pulmonary hypertension, [place] (03/07/19), anemia, pulmonary fibrosis, bronchiectasis, chronic respiratory failure on 2 L continuous supplemental oxygen who presents to [facility] ED with complaints of left- sided chest pain with radiation to left upper quadrant. Acute Chest Pain R/O ACS -Initiate chest pain protocol -Continuous telemetry monitoring -Continue supportive care -Pain mgmt -Troponin negative - on ASA and Statin -Hx of [place] (02/2019) -Cardiology Consulted and recommended to do ischemic workup like LHC vs MPI Exacerbation CHF -New onset -CXR showed Diffuse interstitial pulmonary edema -BNP elevated 62922 -Cardiology Consulted Acute on Chronic Hypoxic Respiratory Failure -Baseline oxygen 2L NC continuously -Oxygen saturation in the 80's on 2L NC -Currently on non-rebreather 10L -ABG 7.383/33.8/64/21 -On IV systemic steroids -Monitor saturations wean as tolerate ILD -Likely having ILD flare -Hx Bronchiectasis -Hx Pulmonary fibrosis -CT angio Chest showed Chronic changes are seen diffusely in the lung fatima -Continue supplemental oxygen -Continue systemic steroids -Pulmonary consulted Suspicion of PE Elevated d-dimer 330.84 -CTA negative for PE -PE ruled out DM2 -POC BG monitoring -SSI coverage prn Hypertension -Continue to monitor BP -Resume home antihypertensive meds to optimize BP once home medication reconciliation has been completed Lactic acidosis -Lactic Acid 3.00 on admission repeat 1.9 -Received dose of empiric IV abx in ED -Afebrile -No leukocytosis -Continue to monitor DVT PPX -On Lovenox Subjective Date of service: 06/02/19 Principal diagnosis: acute on chronic hypoxic respiratory failure, CHF exacerb ation,ILD, T2 DM Interval history: Laying in bed. Still having shortness of breath. Intermittent chest pain. Denies any fever. Objective - Exam Narrative Exam: Constitutional: Well-nourished well-developed. In no distress Head: Normocephalic atraumatic Eyes: Pupils are equal round and reactive to light Nose: No enlarged turbinates, no septal deviation. Mouth: Moist mucous membranes. Neck: Supple no thyromegaly. No bruit. No JVD Heart: Regular rate and rhythm, S1-S2 normal. No rubs murmurs or gallop Lungs: Clear to auscultation bilaterally. no rales or rhonchi Abdomen: Soft, nontender. Bowel sound are present. Extremities: No edema, no cyanosis, no clubbing. Neuro: Alert oriented Oriented x3. No focal sensory or motor deficit. Skin: No rashes or hyperpigmented spots Musculoskeletal system: No joint pain or swelling Hematological: No petechia or subcutanous hemorrhages. Immunological: No multiple septic spots on the skin Lymphatic: No generalized lymphadenopathy Psychiatry: Euthymic. Calm. - Constitutional Vitals: Vital Signs - 12hr 06/02/19 06/02/19 06/02/19 04:39 07:40 08:16 Temperature 97.4 F L 98.6 F Pulse Rate 73 65 64 Pulse Rate [ Apical] Pulse Rate [ From Monitor] Pulse Rate [ Left Radial] Pulse Rate [ Right Radial] Respiratory 18 18 Rate Respiratory Rate [Left Shoulder] Blood Pressure 99/71 113/76 O2 Sat by Pulse 99 98 Oximetry 06/02/19 06/02/19 06/02/19 09:58 10:00 12:00 Temperature Pulse Rate 65 Pulse Rate [ 66 Apical] Pulse Rate [ 66 From Monitor] Pulse Rate [ 66 Left Radial] Pulse Rate [ 66 Right Radial] Respiratory 18 Rate Respiratory 18 Rate [Left Shoulder] Blood Pressure 113/76 O2 Sat by Pulse 98 Oximetry 06/02/19 12:16 Temperature 98.2 F Pulse Rate 80 Pulse Rate [ Apical] Pulse Rate [ From Monitor] Pulse Rate [ Left Radial] Pulse Rate [ Right Radial] Respiratory 18 Rate Respiratory Rate [Left Shoulder] Blood Pressure 113/81 O2 Sat by Pulse 97 Oximetry - Labs CBC & Chem 7: 06/01/19 05:06 06/01/19 05:06 Labs: Abnormal lab results 06/01/19 06/01/19 06/02/19 Range/Units 15:38 22:08 06:33 POC Glucose 157 H 163 H 141 H (70-105) 06/02/19 Range/Units 12:23 POC Glucose 173 H (70-105)
[2019-06-02] MEDS ORDERED: SERTRALINE HCL 50 MG PO SCH (16:30)
[2019-06-02] MEDS ORDERED: XANAX PO PRN (16:30)
[2019-06-02] MEDS ORDERED: XANAX PO SCH (16:30)
[2019-06-02] MEDS: ZOLOFT PO SCH (17:36)
[2019-06-02] MEDS: PULMICORT IH SCH (21:47)
[2019-06-02] MEDS: TYLENOL PO PRN (22:28)
[2019-06-03] MEDS: MORPHINE IV PRN ×4 (05:02→22:53)
[2019-06-03] MEDS: LASIX PO SCH ×2 (05:02→17:40)
[2019-06-03] MEDS: SOLU-Medrol IV SCH ×3 (05:03→21:31)
[2019-06-03 06:29] LABS: Hematocrit 29.5 % (35.5-45.6); Mean Corpuscular HGB Conc 34 % (32-34); Mean Corpuscular Volume 83 fl (84-94); Platelet Count 282 K/mm3 (140-440); Red Blood Count 3.58 M/mm3 (3.65-5.03); Red Cell Distribution Width 18.3 % (13.2-15.2)
[2019-06-03 06:38] LABS: INR 1.18 (0.87-1.13)
[2019-06-03 06:39] LABS: Partial Thromboplastin Time 51.1 Sec. (24.2-36.6)
[2019-06-03 07:01] LABS: Alanine Aminotransferase 10 units/L (7-56); Albumin 3.5 g/dL (3.9-5); BUN/Creatinine Ratio 28; Blood Urea Nitrogen 31 mg/dL (9-20); Calcium 9.3 mg/dL (8.4-10.2); Hemolysis Index 0
--- NOTE | 2019-06-03 08:17 | XRay Report ---
CHEST 1 VIEW INDICATION: Pulmonary fibrosis. COMPARISON: 05/30/2019 FINDINGS: Support devices: None. Heart: Borderline to mild cardiomegaly is stable. Normal mediastinal contour. Lungs/Pleura: Prominent interstitial markings are again noted throughout both lungs suggesting chroni c interstitial changes or fibrosis. No consolidation, large pleural effusion or pneumothorax has deve loped. Additional findings: None. IMPRESSION: Findings consistent with mild pulmonary fibrosis. No acute change since 05/30/2019. Signer Name: Vasiliy Burnett Jr, MD Signed: 06/03/2019 8:13 AM Workstation Name: [id number]
--- NOTE | 2019-06-03 08:36 | Progress Note ---
Assessment and Plan - Patient Problems (1) ILD (interstitial lung disease) Current Visit: Yes Status: Acute (2) Acute respiratory failure Current Visit: Yes Status: Acute (3) Dyspnea Current Visit: Yes Status: Acute (4) Rheumatoid arthritis Current Visit: Yes Status: Acute Subjective Principal diagnosis: acute on chronic hypoxic respiratory failure, CHF exacerbation,ILD, T2 DM Interval history: still sob but better Objective Vital Signs - 12hr 06/02/19 06/02/19 06/02/19 21:53 22:00 22:13 Temperature Pulse Rate 98 H Pulse Rate [ 81 Bilateral Throughout] Respiratory Rate Respiratory 18 Rate [Bilateral Throughout] Blood Pressure 121/79 O2 Sat by Pulse 92 100 Oximetry 06/02/19 06/02/19 06/03/19 23:50 23:57 04:33 Temperature 98.4 F 98.2 F Pulse Rate 98 H 75 70 Pulse Rate [ Bilateral Throughout] Respiratory 18 18 18 Rate Respiratory Rate [Bilateral Throughout] Blood Pressure 97/65 101/73 O2 Sat by Pulse 97 96 96 Oximetry 06/03/19 06/03/19 05:02 08:16 Temperature 98.4 F Pulse Rate 65 Pulse Rate [ Bilateral Throughout] Respiratory 18 18 Rate Respiratory Rate [Bilateral Throughout] Blood Pressure 107/74 O2 Sat by Pulse 100 Oximetry Constitutional: no acute distress, alert Eyes: non-icteric ENT: oropharynx moist Neck: supple Effort: normal Ascultation: Bilateral: diminished breath sounds, rales Cardiovascular: regular rate and rhythm (no mrg) Gastrointestinal: normoactive bowel sounds, soft, non-tender, non-distended Integumentary: normal Extremities: no cyanosis, no edema, pink and warm Neurologic: normal mental status, non-focal exam, pupils equal and round Psychiatric: mood appropriate, affect normal CBC and BMP: 06/03/19 05:17 06/03/19 05:17 ABG, PT/INR, D-dimer: ABG POC ABG pH 7.383 (7.35-7.45) 05/31/19 00:41 POC ABG pCO2 33.8 (35-45) L 05/31/19 00:41 POC ABG pO2 64 (80-105) L 05/31/19 00:41 POC ABG HCO3 20.1 (22-26 mml/L) 05/31/19 00:41 POC ABG Total CO2 21 (23-27mmol/L) 05/31/19 00:41 POC ABG O2 Sat 92 05/31/19 00:41 PT/INR, D-dimer PT 14.7 Sec. (12.2-14.9) 06/03/19 05:17 INR 1.18 (0.87-1.13) H 06/03/19 05:17 330.84 ng/mlDDU (0-234) H 05/30/19 20:53 Abnormal lab findings: Abnormal Labs 05/30/19 05/30/19 05/30/19 20:53 20:53 20:53 RBC Hgb 11.3 L Hct 33.7 L MCV 83 L RDW 18.6 H Lymph % (Auto) 6.5 L Lymph # 0.5 L Seg Neutrophils % 89.7 H INR APTT D-Dimer 330.84 H POC ABG pCO2 POC ABG pO2 Sodium 133 L Chloride 95.8 L Carbon Dioxide 20 L BUN Glucose 112 H POC Glucose Lactic Acid NT-Pro-B Natriuret Pep Albumin 3.6 L HDL Cholesterol Lipase 11 L Ur Specific [place] 05/30/19 05/30/19 05/30/19 20:53 20:53 22:46 RBC Hgb Hct MCV RDW Lymph % (Auto) Lymph # Seg Neutrophils % INR APTT D-Dimer POC ABG pCO2 POC ABG pO2 Sodium Chloride Carbon Dioxide BUN Glucose POC Glucose Lactic Acid 3.00 H* 2.20 H* NT-Pro-B Natriuret Pep 00317 H Albumin HDL Cholesterol Lipase Ur Specific [place] 05/30/19 05/31/19 05/31/19 23:00 00:41 00:51 RBC Hgb Hct MCV RDW Lymph % (Auto) Lymph # Seg Neutrophils % INR APTT D-Dimer POC ABG pCO2 33.8 L POC ABG pO2 64 L Sodium Chloride Carbon Dioxide BUN Glucose POC Glucose Lactic Acid 2.30 H* NT-Pro-B Natriuret Pep Albumin HDL Cholesterol Lipase Ur Specific [place] 1.041 H 05/31/19 05/31/19 05/31/19 03:44 06:32 11:53 RBC Hgb Hct MCV RDW Lymph % (Auto) Lymph # Seg Neutrophils % INR APTT D-Dimer POC ABG pCO2 POC ABG pO2 Sodium Chloride Carbon Dioxide BUN Glucose POC Glucose 235 H 142 H Lactic Acid NT-Pro-B Natriuret Pep Albumin HDL Cholesterol 67 H Lipase Ur Specific [place] 05/31/19 05/31/19 06/01/19 14:08 18:04 01:13 RBC Hgb Hct MCV RDW Lymph % (Auto) Lymph # Seg Neutrophils % INR APTT D-Dimer POC ABG pCO2 POC ABG pO2 Sodium Chloride Carbon Dioxide BUN Glucose POC Glucose 138 H 112 H 109 H Lactic Acid NT-Pro-B Natriuret Pep Albumin HDL Cholesterol Lipase Ur Specific [place] 06/01/19 06/01/19 06/01/19 05:06 05:06 06:19 RBC Hgb 10.5 L Hct 31.4 L MCV 82 L RDW 18.6 H Lymph % (Auto) 6.3 L Lymph # 0.5 L Seg Neutrophils % 89.3 H INR APTT D-Dimer POC ABG pCO2 POC ABG pO2 Sodium Chloride Carbon Dioxide BUN 27 H Glucose 123 H POC Glucose 133 H Lactic Acid NT-Pro-B Natriuret Pep Albumin HDL Cholesterol Lipase Ur Specific [place] 06/01/19 06/01/19 06/01/19 12:40 15:38 22:08 RBC Hgb Hct MCV RDW Lymph % (Auto) Lymph # Seg Neutrophils % INR APTT D-Dimer POC ABG pCO2 POC ABG pO2 Sodium Chloride Carbon Dioxide BUN Glucose POC Glucose 121 H 157 H 163 H Lactic Acid NT-Pro-B Natriuret Pep Albumin HDL Cholesterol Lipase Ur Specific [place] 06/02/19 06/02/19 06/02/19 06:33 12:23 17:10 RBC Hgb Hct MCV RDW Lymph % (Auto) Lymph # Seg Neutrophils % INR APTT D-Dimer POC ABG pCO2 POC ABG pO2 Sodium Chloride Carbon Dioxide BUN Glucose POC Glucose 141 H 173 H 136 H Lactic Acid NT-Pro-B Natriuret Pep Albumin HDL Cholesterol Lipase Ur Specific [place] 06/03/19 06/03/19 06/03/19 00:04 05:17 05:17 RBC 3.58 L Hgb 10.0 L Hct 29.5 L MCV 83 L RDW 18.3 H Lymph % (Auto) Lymph # Seg Neutrophils % INR 1.18 H APTT 51.1 H D-Dimer POC ABG pCO2 POC ABG pO2 Sodium Chloride Carbon Dioxide BUN Glucose POC Glucose 161 H Lactic Acid NT-Pro-B Natriuret Pep Albumin HDL Cholesterol Lipase Ur Specific [place] 06/03/19 06/03/19 05:17 05:55 RBC Hgb Hct MCV RDW Lymph % (Auto) Lymph # Seg Neutrophils % INR APTT D-Dimer POC ABG pCO2 POC ABG pO2 Sodium Chloride 97.7 L Carbon Dioxide BUN 31 H Glucose 145 H POC Glucose 153 H Lactic Acid NT-Pro-B Natriuret Pep Albumin 3.5 L HDL Cholesterol Lipase Ur Specific [place] Chest x-ray: report reviewed, image reviewed
[2019-06-03] MEDS: PULMICORT IH SCH ×2 (09:38→19:35)
[2019-06-03] MEDS: LOPRESSOR PO SCH ×2 (10:02→21:30)
[2019-06-03] MEDS: BABY ASPIRIN PO SCH (10:02)
[2019-06-03] MEDS: PLAVIX PO SCH (10:03)
[2019-06-03] MEDS: LOVENOX SUB-Q SCH ×2 (10:03→21:31)
[2019-06-03] MEDS: SODIUM CHLORIDE FLUSH SYRINGE 10 ML IV SCH ×2 (10:03→21:31)
[2019-06-03] MEDS: ZOLOFT PO SCH (10:03)
[2019-06-03] MEDS: LEVAQUIN 750MG/150ML 750 MG/150 ML BAG IV SCH (10:27)
--- NOTE | 2019-06-03 10:50 | Progress Note ---
Assessment and Plan Acute hypoxic respiratory failure with hypoxia Pulmonary Fibrosis on home oxygen Chest pain - reason for admission Abnormal ECG Prior history of PEA arrest at [facility] treated conservatively due to multiple comorbidities PTSD and anxiety disorder An echocardiogram done 02/2019 at [facility] reports a normal LV size with a well preserved ejection fraction 62%. Continue medical therapy for underlying coronary artery disease. Otherwise, conservative cardiac management. Subjective Date of service: 06/03/19 Principal diagnosis: acute on chronic hypoxic respiratory failure, CHF exacerbation,ILD, T2 DM Interval history: Patient is resting in bed comfortably. He denies chest pain. No distress noted. Objective Vital Signs Temp Pulse Pulse Resp Resp Resp BP 06/03/19 10:07 90 20 06/03/19 09:38 06/03/19 08:41 65 06/03/19 08:16 98.4 F 65 18 107/74 06/03/19 05:02 18 06/03/19 04:33 98.2 F 70 18 101/73 06/02/19 23:57 98.4 F 75 18 97/65 06/02/19 23:50 98 H 18 06/02/19 22:13 98 H 121/79 06/02/19 22:00 06/02/19 21:53 81 18 06/02/19 19:50 96 H 06/02/19 19:39 98.1 F 98 H 18 121/79 06/02/19 17:05 97.9 F 90 18 118/82 06/02/19 12:16 98.2 F 80 18 113/81 06/02/19 12:00 18 Pulse Ox 06/03/19 10:07 06/03/19 09:38 97 06/03/19 08:41 06/03/19 08:16 100 06/03/19 05:02 06/03/19 04:33 96 06/02/19 23:57 96 06/02/19 23:50 97 06/02/19 22:13 06/02/19 22:00 100 06/02/19 21:53 92 06/02/19 19:50 06/02/19 19:39 100 06/02/19 17:05 85 06/02/19 12:16 97 06/02/19 12:00 - Physical Examination General: No Apparent Distress HEENT: Positive: PERRL Neck: Positive: trachea midline Cardiac: Positive: Reg Rate and Rhythm Lungs: Positive: Decreased Breath Sounds Neuro: Positive: Weakness Extremities: Absent: edema - Labs and Meds Cardiac Enzymes 06/03/19 Range/Units 05:17 AST 14 (5-40) units/L Coagulation 06/03/19 Range/Units 05:17 PT 14.7 (12.2-14.9) Sec. INR 1.18 H (0.87-1.13) APTT 51.1 H (24.2-36.6) Sec. CBC 06/03/19 Range/Units 05:17 WBC 10.8 (4.5-11.0) K/mm3 RBC 3.58 L (3.65-5.03) M/mm3 Hgb 10.0 L (11.8-15.2) gm/dl Hct 29.5 L (35.5-45.6) % Plt Count 282 (140-440) K/mm3 Comprehensive Metabolic Panel 06/03/19 Range/Units 05:17 Sodium 138 (137-145) mmol/L Potassium 4.4 (3.6-5.0) mmol/L Chloride 97.7 L (98-107) mmol/L Carbon Dioxide 26 (22-30) mmol/L BUN 31 H (9-20) mg/dL Creatinine 1.1 (0.8-1.5) mg/dL Glucose 145 H (75-100) mg/dL Calcium 9.3 (8.4-10.2) mg/dL AST 14 (5-40) units/L ALT 10 (7-56) units/L Alkaline Phosphatase 77 (35-129) units/L Total Protein 6.8 (6.3-8.2) g/dL Albumin 3.5 L (3.9-5) g/dL
[2019-06-03 11:05] LABS: Basophils % (Manual) 0 % (0.0-1.8); Eosinophils % (Manual) 0 % (0.0-4.3); Hypochromasia 1+; Monocytes % (Manual) 0 % (0.0-7.3); Total Cells Counted 100
[2019-06-03 11:06] LABS: Platelet Estimate Consistent w Auto
--- NOTE | 2019-06-03 12:26 | Progress Note ---
Assessment and Plan Assessment and plan: 73-year-old -[place] male is a resident of [facility] with history of PTSD, DM 2, HTN, pulmonary hypertension, [place] (03/07/19), anemia, pulmonary fibrosis, bronchiectasis, chronic respiratory failure on 2 L continuous supplemental oxygen who presents to [facility] ED with complaints of left- sided chest pain with radiation to left upper quadrant. 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 He follows up regularly with his producer arborist manager at [facility]. We will continue conservative cardiac management, and defer to follow-up with his outpatient producer arborist manager. Acute on Chronic Hypoxic Respiratory Failure cont supplemental oxygen, and steroids, NIV as needed ILD rx steroids for ILD flare which was supected Suspicion of PE Elevated d-dimer 330.84 -CTA negative for PE -PE ruled out DM2 -POC BG monitoring -SSI coverage prn History Interval history: Patient is complaining of anxiety and chest pain Review of systems Constitutional: No fevers, no malaise, no joint pains CVS: no orthopnea, no pedal edema GI: No abdominal pain, no diarrhea, no vomiting, no constipation Respiratory: He is also complaining of shortness of breath Hospitalist Physical - Physical exam Narrative exam: General.: anxious, mild distress HEENT: Moist mucous membranes, extraocular muscles intact, no lymphadenopathy Neck: supple Cardiac: S1-S2 heard Lungs: decreased air entry Abdomen: soft , nontender, nondistended, bowel sounds positive Extremities: no edema clubbing or cyanosis Skin: no rash or lesions Neurologic: no gross focal deficits Psych: calm, and cooperative - Constitutional Vitals: Temp Pulse Resp BP Pulse Ox 97.9 F 72 18 116/79 94 06/03/19 12:05 06/03/19 12:05 06/03/19 12:05 06/03/19 12:05 06/03/19 12:05 General appearance: Present: mild distress Results - Labs CBC & Chem 7: 06/03/19 05:17 06/03/19 05:17 Labs: Laboratory Last Values WBC 10.8 K/mm3 (4.5-11.0) 06/03/19 05:17 RBC 3.58 M/mm3 (3.65-5.03) L 06/03/19 05:17 Hgb 10.0 gm/dl (11.8-15.2) L 06/03/19 05:17 Hct 29.5 % (35.5-45.6) L 06/03/19 05:17 MCV 83 fl (84-94) L 06/03/19 05:17 MCH 28 pg (28-32) 06/03/19 05:17 MCHC 34 % (32-34) 06/03/19 05:17 RDW 18.3 % (13.2-15.2) H 06/03/19 05:17 Plt Count 282 K/mm3 (140-440) 06/03/19 05:17 Lymph % (Auto) 6.3 % (13.4-35.0) L 06/01/19 05:06 [place] % (Auto) 4.3 % (0.0-7.3) 06/01/19 05:06 Eos % (Auto) 0.0 % (0.0-4.3) 06/01/19 05:06 Baso % (Auto) 0.1 % (0.0-1.8) 06/01/19 05:06 Lymph # 0.5 K/mm3 (1.2-5.4) L 06/01/19 05:06 [place] # 0.3 K/mm3 (0.0-0.8) 06/01/19 05:06 Eos # 0.0 K/mm3 (0.0-0.4) 06/01/19 05:06 Baso # 0.0 K/mm3 (0.0-0.1) 06/01/19 05:06 Add Manual Diff Complete 06/03/19 05:17 Total Counted 100 06/03/19 05:17 Seg Neutrophils % Glass Blower Helper 06/03/19 05:17 Seg Neuts % (Manual) 95.0 % (40.0-70.0) H 06/03/19 05:17 0 % 06/03/19 05:17 5.0 % (13.4-35.0) L 06/03/19 05:17 Reactive Lymphs % (Man) 0 % 06/03/19 05:17 0 % (0.0-7.3) 06/03/19 05:17 0 % (0.0-4.3) 06/03/19 05:17 0 % (0.0-1.8) 06/03/19 05:17 0 % 06/03/19 05:17 0 % 06/03/19 05:17 0 % 06/03/19 05:17 0 % 06/03/19 05:17 Nucleated RBC % Not Reportable 06/03/19 05:17 Seg Neutrophils # 7.2 K/mm3 (1.8-7.7) 06/01/19 05:06 Seg Neutrophils # Man 10.3 K/mm3 (1.8-7.7) H 06/03/19 05:17 Band Neutrophils # 0.0 K/mm3 06/03/19 05:17 0.5 K/mm3 (1.2-5.4) L 06/03/19 05:17 Abs React Lymphs (Man) 0.0 K/mm3 06/03/19 05:17 0.0 K/mm3 (0.0-0.8) 06/03/19 05:17 0.0 K/mm3 (0.0-0.4) 06/03/19 05:17 0.0 K/mm3 (0.0-0.1) 06/03/19 05:17 0.0 K/mm3 06/03/19 05:17 0.0 K/mm3 06/03/19 05:17 0.0 K/mm3 06/03/19 05:17 Blast Cells # 0.0 K/mm3 06/03/19 05:17 WBC Morphology Not Reportable 06/03/19 05:17 Hypersegmented Neuts Not Reportable 06/03/19 05:17 Hyposegmented Neuts Not Reportable 06/03/19 05:17 Hypogranular Neuts Not Reportable 06/03/19 05:17 Not Reportable 06/03/19 05:17 Not Reportable 06/03/19 05:17 Not Reportable 06/03/19 05:17 Not Reportable 06/03/19 05:17 Not Reportable 06/03/19 05:17 Not Reportable 06/03/19 05:17 Consistent w auto 06/03/19 05:17 Not Reportable 06/03/19 05:17 Plt Clumps, EDTA Not Reportable 06/03/19 05:17 Not Reportable 06/03/19 05:17 Not Reportable 06/03/19 05:17 Not Reportable 06/03/19 05:17 Plt Morphology Comment Not Reportable 06/03/19 05:17 RBC Morphology Not Reportable 06/03/19 05:17 Dimorphic RBCs Not Reportable 06/03/19 05:17 Not Reportable 06/03/19 05:17 1+ 06/03/19 05:17 Not Reportable 06/03/19 05:17 Not Reportable 06/03/19 05:17 Not Reportable 06/03/19 05:17 Not Reportable 06/03/19 05:17 Not Reportable 06/03/19 05:17 Not Reportable 06/03/19 05:17 Not Reportable 06/03/19 05:17 Not Reportable 06/03/19 05:17 Not Reportable 06/03/19 05:17 Not Reportable 06/03/19 05:17 Not Reportable 06/03/19 05:17 Not Reportable 06/03/19 05:17 Not Reportable 06/03/19 05:17 Not Reportable 06/03/19 05:17 Not Reportable 06/03/19 05:17 Not Reportable 06/03/19 05:17 Not Reportable 06/03/19 05:17 Acanthocytes (Spur) Not Reportable 06/03/19 05:17 Rouleaux Not Reportable 06/03/19 05:17 Not Reportable 06/03/19 05:17 Not Reportable 06/03/19 05:17 Not Reportable 06/03/19 05:17 Not Reportable 06/03/19 05:17 Hem Pathologist Commnt No 06/03/19 05:17 PT 14.7 Sec. (12.2-14.9) 06/03/19 05:17 INR 1.18 (0.87-1.13) H 06/03/19 05:17 APTT 51.1 Sec. (24.2-36.6) H 06/03/19 05:17 330.84 ng/mlDDU (0-234) H 05/30/19 20:53 POC ABG pH 7.383 (7.35-7.45) 05/31/19 00:41 POC ABG pCO2 33.8 (35-45) L 05/31/19 00:41 POC ABG pO2 64 (80-105) L 05/31/19 00:41 POC ABG HCO3 20.1 (22-26 mml/L) 05/31/19 00:41 POC ABG Total CO2 21 (23-27mmol/L) 05/31/19 00:41 POC ABG O2 Sat 92 05/31/19 00:41 POC ABG Base Excess -5 ((-2) - (+3)mmol/L) 05/31/19 00:41 36 % 05/31/19 00:41 Sodium 138 mmol/L (137-145) 06/03/19 05:17 Potassium 4.4 mmol/L (3.6-5.0) 06/03/19 05:17 Chloride 97.7 mmol/L (98-107) L 06/03/19 05:17 Carbon Dioxide 26 mmol/L (22-30) 06/03/19 05:17 19 mmol/L 06/03/19 05:17 BUN 31 mg/dL (9-20) H 06/03/19 05:17 1.1 mg/dL (0.8-1.5) 06/03/19 05:17 Estimated GFR > 60 ml/min 06/03/19 05:17 28 % 06/03/19 05:17 Glucose 145 mg/dL (75-100) H 06/03/19 05:17 POC Glucose 199 (70-105) H 06/03/19 12:11 Lactic Acid 1.90 mmol/L (0.7-2.0) 05/31/19 03:44 Calcium 9.3 mg/dL (8.4-10.2) 06/03/19 05:17 0.30 mg/dL (0.1-1.2) 06/03/19 05:17 AST 14 units/L (5-40) 06/03/19 05:17 ALT 10 units/L (7-56) 06/03/19 05:17 77 units/L (35-129) 06/03/19 05:17 0.011 ng/mL (0.00-0.029) 05/31/19 00:51 NT-Pro-B Natriuret Pep 04208 pg/mL (0-900) H 05/30/19 20:53 6.8 g/dL (6.3-8.2) 06/03/19 05:17 3.5 g/dL (3.9-5) L 06/03/19 05:17 1.1 % 06/03/19 05:17 Triglycerides 74 mg/dL (2-149) 05/31/19 03:44 Cholesterol 182 mg/dL (50-199) 05/31/19 03:44 117 mg/dL (50-130) 05/31/19 03:44 67 mg/dL (40-59) H 05/31/19 03:44 2.71 % 05/31/19 03:44 11 units/L (13-60) L 05/30/19 20:53 Yellow (Yellow) 05/30/19 23:00 Slightly-cloudy (Clear) 05/30/19 23:00 5.0 (5.0-7.0) 05/30/19 23:00 Ur Specific [place] 1.041 (1.003-1.030) H 05/30/19 23:00 <15 mg/dl mg/dL (Negative) 05/30/19 23:00 Neg mg/dL (Negative) 05/30/19 23:00 Neg mg/dL (Negative) 05/30/19 23:00 Neg (Negative) 05/30/19 23:00 Neg (Negative) 05/30/19 23:00 Neg (Negative) 05/30/19 23:00 < 2.0 mg/dL (<2.0) 05/30/19 23:00 Ur Leukocyte Esterase Neg (Negative) 05/30/19 23:00 4.0 /HPF (0.0-6.0) 05/30/19 23:00 < 1.0 /HPF (0.0-6.0) 05/30/19 23:00 U Epithel Cells (Auto) 1.0 /HPF (0-13.0) 05/30/19 23:00 Hyaline Casts 5 /LPF 05/30/19 23:00 Few /HPF 05/30/19 23:00 Active Medications - Current Medications Current Medications: Generic Name Dose Route Start Last Admin Trade Name Freq PRN Reason Stop Dose Admin Acetaminophen 650 mg 05/31/19 00:07 06/02/19 22:28 Tylenol PO 650 mg Q4H PRN Administration Pain MILD(1-3)/Fever >100.5/CARSON Albuterol 2.5 mg 05/30/19 23:55 06/03/19 09:38 Proventil IH 2.5 mg Q3HRT PRN Administration Shortness Of Breath Alprazolam 0.25 mg 06/02/19 16:30 06/02/19 22:28 Xanax PO 0.25 mg Q12H PRN Administration Anxiety Aspirin 81 mg 06/01/19 10:00 06/03/19 10:02 Baby Aspirin PO 81 mg QDAY SINDI Administration Atorvastatin Calcium 40 mg 05/31/19 22:00 06/02/19 22:12 Lipitor PO 40 mg QHS SINDI Administration Budesonide 0.5 mg 06/02/19 22:00 06/03/19 09:38 Pulmicort IH 0.5 mg BID SINDI Administration Clopidogrel Bisulfate 75 mg 05/31/19 17:00 06/03/19 10:03 Plavix PO 75 mg QDAY SINDI Administration Dextrose 50 ml 05/31/19 00:07 D50w (25gm) Syringe IV PRN PRN Hypoglycemia Enoxaparin Sodium 70 mg 05/31/19 22:00 06/03/19 10:03 Lovenox 1 mg/kg (70 mg) 70 mg SUB-Q Administration Q12HR SINDI Furosemide 20 mg 05/31/19 18:00 06/03/19 05:02 Lasix PO 20 mg 0600,1800 SINDI Administration Hydromorphone HCl 0.5 mg 05/31/19 00:07 Dilaudid IV Q3H PRN Pain , Severe (7-10) Levofloxacin/Dextrose 750 mg in 150 mls @ 100 mls/hr 06/01/19 10:00 06/03/19 10:27 Levaquin 750mg/150ml IV 06/05/19 11:29 100 mls/hr Q24HR SINDI Administration Protocol Methylprednisolone Sodium Succinate 60 mg 05/31/19 06:00 06/03/19 05:03 Solu-Medrol IV 60 mg Q8HR SINDI Administration Metoprolol Tartrate 12.5 mg 05/31/19 22:00 06/03/19 10:02 Lopressor PO 12.5 mg BID SINDI Administration Morphine Sulfate 2 mg 05/31/19 00:07 06/03/19 10:03 Morphine IV 2 mg Q4H PRN Administration Pain, Moderate (4-6) Ondansetron HCl 4 mg 05/31/19 00:07 Zofran IV Q6H PRN Nausea And Vomiting Sertraline HCl 50 mg 06/02/19 16:30 06/03/19 10:03 Zoloft PO 50 mg QDAY SINDI Administration Sodium Chloride 10 ml 05/31/19 10:00 06/03/19 10:03 Sodium Chloride Flush Syringe 10 Ml IV 10 ml BID SINDI Administration Sodium Chloride 10 ml 05/31/19 00:07 Sodium Chloride Flush Syringe 10 Ml IV PRN PRN LINE FLUSH
[2019-06-03] MEDS ORDERED: XANAX PO PRN (18:29)
[2019-06-04] MEDS: SOLU-Medrol IV SCH (05:16)
[2019-06-04] MEDS: LASIX PO SCH (05:17)
[2019-06-04] MEDS: MORPHINE IV PRN (06:16)
[2019-06-04] MEDS: PULMICORT IH SCH (07:41)
[2019-06-04 07:47] VITALS: BP 91/67
[2019-06-04] MEDS ORDERED: INTROPIN DRIP 800 MG/D5W 250 ML IV ONE (08:15)
[2019-06-04] MEDS ORDERED: ADRENALIN ONE (08:15)
--- NOTE | 2019-06-04 08:36 | Death Summary ---
Summary - Providers Consults: 05/31/19 Consult to Cardiac Rehabilitation [CONS] Routine Reason For Exam: Phase I 05/31/19 00:17 Consult to Physician [CONS] Routine Comment: Consulting Provider: KANDIS LLOYD Physician Instructions: Reason For Exam: chest pain, hx [place] (02/2019) & pulmonary fibrosis 05/31/19 00:39 Consult to Physician [CONS] Routine Comment: Consulting Provider: ARMAAN FRIAS Physician Instructions: Reason For Exam: history of pulmonary fibrosis, bronchiectasis Attending: RICHMOND MONTEIRO MD - summary Date of admission: 05/30/19 23:55 Significant findings: 73-year-old -[place] male is a resident of [facility] with history of PTSD, DM 2, HTN, pulmonary hypertension, [place] (03/07/19), anemia, pulmonary fibrosis, bronchiectasis, chronic respiratory failure on 2 L continuous supplemental oxygen who presents to [facility] ED with complaints of left- sided chest pain with radiation to left upper quadrant. 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 He follows up regularly with his slice plug cutter operator at [facility]. We will continue conservative cardiac management, and defer to follow-up with his outpatient slice plug cutter operator. Acute on Chronic Hypoxic Respiratory Failure was on supplemental oxygen, and steroids, NIV as needed ILD rx steroids for ILD flare which was suspected Suspicion of PE Elevated d-dimer 330.84 -CTA negative for PE -PE ruled out DM2 -POC BG monitoring -SSI coverage prn After initial work-up, patient was being treated for respiratory failure/ILD. He was also be medically managed for chest pain/CAD. The patient appeared to be improving, he was also receiving Xanax for anxiety. Unfortunately patient was found to be pulseless and not breathing. He received aggressive resuscitation and unfortunately .
--- NOTE | 2019-06-04 08:38 | Progress Note ---
Hospitalist Physical - Constitutional Vitals: Temp Pulse Resp BP Pulse Ox 97.5 F L 130 H 32 H 91/67 87 06/04/19 07:41 06/04/19 07:45 06/04/19 07:45 06/04/19 07:41 06/04/19 07:41 General appearance: Present: mild distress Results - Labs CBC & Chem 7: 06/03/19 05:17 06/03/19 05:17 Labs: Laboratory Last Values WBC 10.8 K/mm3 (4.5-11.0) 06/03/19 05:17 RBC 3.58 M/mm3 (3.65-5.03) L 06/03/19 05:17 Hgb 10.0 gm/dl (11.8-15.2) L 06/03/19 05:17 Hct 29.5 % (35.5-45.6) L 06/03/19 05:17 MCV 83 fl (84-94) L 06/03/19 05:17 MCH 28 pg (28-32) 06/03/19 05:17 MCHC 34 % (32-34) 06/03/19 05:17 RDW 18.3 % (13.2-15.2) H 06/03/19 05:17 Plt Count 282 K/mm3 (140-440) 06/03/19 05:17 Lymph % (Auto) 6.3 % (13.4-35.0) L 06/01/19 05:06 Hooker % (Auto) 4.3 % (0.0-7.3) 06/01/19 05:06 Eos % (Auto) 0.0 % (0.0-4.3) 06/01/19 05:06 Baso % (Auto) 0.1 % (0.0-1.8) 06/01/19 05:06 Lymph # 0.5 K/mm3 (1.2-5.4) L 06/01/19 05:06 Hooker # 0.3 K/mm3 (0.0-0.8) 06/01/19 05:06 Eos # 0.0 K/mm3 (0.0-0.4) 06/01/19 05:06 Baso # 0.0 K/mm3 (0.0-0.1) 06/01/19 05:06 Add Manual Diff Complete 06/03/19 05:17 Total Counted 100 06/03/19 05:17 Seg Neutrophils % Personal Assistant 06/03/19 05:17 Seg Neuts % (Manual) 95.0 % (40.0-70.0) H 06/03/19 05:17 0 % 06/03/19 05:17 5.0 % (13.4-35.0) L 06/03/19 05:17 Reactive Lymphs % (Man) 0 % 06/03/19 05:17 0 % (0.0-7.3) 06/03/19 05:17 0 % (0.0-4.3) 06/03/19 05:17 0 % (0.0-1.8) 06/03/19 05:17 0 % 06/03/19 05:17 0 % 06/03/19 05:17 0 % 06/03/19 05:17 0 % 06/03/19 05:17 Nucleated RBC % Not Reportable 06/03/19 05:17 Seg Neutrophils # 7.2 K/mm3 (1.8-7.7) 06/01/19 05:06 Seg Neutrophils # Man 10.3 K/mm3 (1.8-7.7) H 06/03/19 05:17 Band Neutrophils # 0.0 K/mm3 06/03/19 05:17 0.5 K/mm3 (1.2-5.4) L 06/03/19 05:17 Abs React Lymphs (Man) 0.0 K/mm3 06/03/19 05:17 0.0 K/mm3 (0.0-0.8) 06/03/19 05:17 0.0 K/mm3 (0.0-0.4) 06/03/19 05:17 0.0 K/mm3 (0.0-0.1) 06/03/19 05:17 0.0 K/mm3 06/03/19 05:17 0.0 K/mm3 06/03/19 05:17 0.0 K/mm3 06/03/19 05:17 Blast Cells # 0.0 K/mm3 06/03/19 05:17 WBC Morphology Not Reportable 06/03/19 05:17 Hypersegmented Neuts Not Reportable 06/03/19 05:17 Hyposegmented Neuts Not Reportable 06/03/19 05:17 Hypogranular Neuts Not Reportable 06/03/19 05:17 Not Reportable 06/03/19 05:17 Not Reportable 06/03/19 05:17 Not Reportable 06/03/19 05:17 Not Reportable 06/03/19 05:17 Not Reportable 06/03/19 05:17 Not Reportable 06/03/19 05:17 Consistent w auto 06/03/19 05:17 Not Reportable 06/03/19 05:17 Plt Clumps, EDTA Not Reportable 06/03/19 05:17 Not Reportable 06/03/19 05:17 Not Reportable 06/03/19 05:17 Not Reportable 06/03/19 05:17 Plt Morphology Comment Not Reportable 06/03/19 05:17 RBC Morphology Not Reportable 06/03/19 05:17 Dimorphic RBCs Not Reportable 06/03/19 05:17 Not Reportable 06/03/19 05:17 1+ 06/03/19 05:17 Not Reportable 06/03/19 05:17 Not Reportable 06/03/19 05:17 Not Reportable 06/03/19 05:17 Not Reportable 06/03/19 05:17 Not Reportable 06/03/19 05:17 Not Reportable 06/03/19 05:17 Not Reportable 06/03/19 05:17 Not Reportable 06/03/19 05:17 Not Reportable 06/03/19 05:17 Not Reportable 06/03/19 05:17 Not Reportable 06/03/19 05:17 Not Reportable 06/03/19 05:17 Not Reportable 06/03/19 05:17 Not Reportable 06/03/19 05:17 Not Reportable 06/03/19 05:17 Not Reportable 06/03/19 05:17 Not Reportable 06/03/19 05:17 Acanthocytes (Spur) Not Reportable 06/03/19 05:17 Rouleaux Not Reportable 06/03/19 05:17 Not Reportable 06/03/19 05:17 Not Reportable 06/03/19 05:17 Not Reportable 06/03/19 05:17 Not Reportable 06/03/19 05:17 Hem Pathologist Commnt No 06/03/19 05:17 PT 14.7 Sec. (12.2-14.9) 06/03/19 05:17 INR 1.18 (0.87-1.13) H 06/03/19 05:17 APTT 51.1 Sec. (24.2-36.6) H 06/03/19 05:17 330.84 ng/mlDDU (0-234) H 05/30/19 20:53 POC ABG pH 7.383 (7.35-7.45) 05/31/19 00:41 POC ABG pCO2 33.8 (35-45) L 05/31/19 00:41 POC ABG pO2 64 (80-105) L 05/31/19 00:41 POC ABG HCO3 20.1 (22-26 mml/L) 05/31/19 00:41 POC ABG Total CO2 21 (23-27mmol/L) 05/31/19 00:41 POC ABG O2 Sat 92 05/31/19 00:41 POC ABG Base Excess -5 ((-2) - (+3)mmol/L) 05/31/19 00:41 36 % 05/31/19 00:41 Sodium 138 mmol/L (137-145) 06/03/19 05:17 Potassium 4.4 mmol/L (3.6-5.0) 06/03/19 05:17 Chloride 97.7 mmol/L (98-107) L 06/03/19 05:17 Carbon Dioxide 26 mmol/L (22-30) 06/03/19 05:17 19 mmol/L 06/03/19 05:17 BUN 31 mg/dL (9-20) H 06/03/19 05:17 1.1 mg/dL (0.8-1.5) 06/03/19 05:17 Estimated GFR > 60 ml/min 06/03/19 05:17 28 % 06/03/19 05:17 Glucose 145 mg/dL (75-100) H 06/03/19 05:17 POC Glucose 221 (70-105) H 06/04/19 06:54 Lactic Acid 1.90 mmol/L (0.7-2.0) 05/31/19 03:44 Calcium 9.3 mg/dL (8.4-10.2) 06/03/19 05:17 0.30 mg/dL (0.1-1.2) 06/03/19 05:17 AST 14 units/L (5-40) 06/03/19 05:17 ALT 10 units/L (7-56) 06/03/19 05:17 77 units/L (35-129) 06/03/19 05:17 0.011 ng/mL (0.00-0.029) 05/31/19 00:51 NT-Pro-B Natriuret Pep 75076 pg/mL (0-900) H 05/30/19 20:53 6.8 g/dL (6.3-8.2) 06/03/19 05:17 3.5 g/dL (3.9-5) L 06/03/19 05:17 1.1 % 06/03/19 05:17 Triglycerides 74 mg/dL (2-149) 05/31/19 03:44 Cholesterol 182 mg/dL (50-199) 05/31/19 03:44 117 mg/dL (50-130) 05/31/19 03:44 67 mg/dL (40-59) H 05/31/19 03:44 2.71 % 05/31/19 03:44 11 units/L (13-60) L 05/30/19 20:53 Yellow (Yellow) 05/30/19 23:00 Slightly-cloudy (Clear) 05/30/19 23:00 5.0 (5.0-7.0) 05/30/19 23:00 Ur Specific Cadet 1.041 (1.003-1.030) H 05/30/19 23:00 <15 mg/dl mg/dL (Negative) 05/30/19 23:00 Neg mg/dL (Negative) 05/30/19 23:00 Neg mg/dL (Negative) 05/30/19 23:00 Neg (Negative) 05/30/19 23:00 Neg (Negative) 05/30/19 23:00 Neg (Negative) 05/30/19 23:00 < 2.0 mg/dL (<2.0) 05/30/19 23:00 Ur Leukocyte Esterase Neg (Negative) 05/30/19 23:00 4.0 /HPF (0.0-6.0) 05/30/19 23:00 < 1.0 /HPF (0.0-6.0) 05/30/19 23:00 U Epithel Cells (Auto) 1.0 /HPF (0-13.0) 05/30/19 23:00 Hyaline Casts 5 /LPF 05/30/19 23:00 Few /HPF 05/30/19 23:00 Active Medications - Current Medications Current Medications: Generic Name Dose Route Start Last Admin Trade Name Freq PRN Reason Stop Dose Admin Acetaminophen 650 mg 05/31/19 00:07 06/02/19 22:28 Tylenol PO 650 mg Q4H PRN Administration Pain MILD(1-3)/Fever >100.5/CARSON Albuterol 2.5 mg 05/30/19 23:55 06/03/19 09:38 Proventil IH 2.5 mg Q3HRT PRN Administration Shortness Of Breath Alprazolam 0.25 mg 06/03/19 18:29 06/04/19 07:52 Xanax PO 0.25 mg TID PRN Administration Anxiety Aspirin 81 mg 06/01/19 10:00 06/03/19 10:02 Baby Aspirin PO 81 mg QDAY SINDI Administration Atorvastatin Calcium 40 mg 05/31/19 22:00 06/03/19 21:30 Lipitor PO 40 mg QHS SINDI Administration Budesonide 0.5 mg 06/03/19 20:00 06/04/19 07:41 Pulmicort IH 0.5 mg Q12HRT SINDI Administration Clopidogrel Bisulfate 75 mg 05/31/19 17:00 06/03/19 10:03 Plavix PO 75 mg QDAY SINDI Administration Dextrose 50 ml 05/31/19 00:07 D50w (25gm) Syringe IV PRN PRN Hypoglycemia Enoxaparin Sodium 70 mg 05/31/19 22:00 06/03/19 21:31 Lovenox 1 mg/kg (70 mg) 70 mg SUB-Q Administration Q12HR SINDI Furosemide 20 mg 05/31/19 18:00 06/04/19 05:17 Lasix PO 20 mg 0600,1800 SINDI Administration Hydromorphone HCl 0.5 mg 05/31/19 00:07 Dilaudid IV Q3H PRN Pain , Severe (7-10) Levofloxacin/Dextrose 750 mg in 150 mls @ 100 mls/hr 06/01/19 10:00 06/03/19 10:27 Levaquin 750mg/150ml IV 06/05/19 11:29 100 mls/hr Q24HR SINDI Administration Protocol Methylprednisolone Sodium Succinate 60 mg 05/31/19 06:00 06/04/19 05:16 Solu-Medrol IV 60 mg Q8HR SINDI Administration Metoprolol Tartrate 12.5 mg 05/31/19 22:00 06/03/19 21:30 Lopressor PO Not Given BID SINDI Morphine Sulfate 2 mg 05/31/19 00:07 06/04/19 06:16 Morphine IV 2 mg Q4H PRN Administration Pain, Moderate (4-6) Ondansetron HCl 4 mg 05/31/19 00:07 Zofran IV Q6H PRN Nausea And Vomiting Sertraline HCl 50 mg 06/02/19 16:30 06/03/19 10:03 Zoloft PO 50 mg QDAY SINDI Administration Sodium Chloride 10 ml 05/31/19 10:00 06/03/19 21:31 Sodium Chloride Flush Syringe 10 Ml IV 10 ml BID SINDI Administration Sodium Chloride 10 ml 05/31/19 00:07 Sodium Chloride Flush Syringe 10 Ml IV PRN PRN LINE FLUSH
[2019-06-04] MEDS ORDERED: LIDOCAINE VISCOUS 2% ONE (11:50)
[2019-06-04] MEDS ORDERED: NACL 0.9% 1000 ML ONE (11:50)
--- NOTE | 2019-06-05 16:01 | Event Note ---
CPR Patient was apparently up and pleasant and eating breakfast and in a good mood. -Nursing noted that he was less responsive, and then he was pulseless and not breathing. [facility] GILBERT was called. Patient received aggressive CPR, but did not have ROSC. Unfortunately the patient despite aggressive resuscitative measures. Patient's daughter was informed
--- NOTE | 2019-06-05 16:03 | Death Note ---
Note Date of : 06/04/19 Time of : 08:33
== END 2019-06-04 16:56 | DRG 196 ==
LOC: ED 17:28 → 4A 23:55
PROVIDERS: ADMIT Internal Medicine; ATTEND Internal Medicine
PROC: 4A033R1 Measurement of Arterial Saturation, Peripheral, Percutaneous Approach (ICD-10-PCS; principal; 2019-05-31)
PROC: 5A09357 Assistance with Respiratory Ventilation, Less than 24 Consecutive Hours, Continuous Positive Airway Pressure (ICD-10-PCS; 2019-05-31)
PROC: 5A09357 Assistance with Respiratory Ventilation, Less than 24 Consecutive Hours, Continuous Positive Airway Pressure (ICD-10-PCS; 2019-06-01)
PROC: 5A09357 Assistance with Respiratory Ventilation, Less than 24 Consecutive Hours, Continuous Positive Airway Pressure (ICD-10-PCS; 2019-06-02)
PROC: 5A09357 Assistance with Respiratory Ventilation, Less than 24 Consecutive Hours, Continuous Positive Airway Pressure (ICD-10-PCS; 2019-06-03)
PROC: 0BH17EZ Insertion of Endotracheal Airway into Trachea, Via Natural or Artificial Opening (ICD-10-PCS; 2019-06-04)
PROC: 5A09357 Assistance with Respiratory Ventilation, Less than 24 Consecutive Hours, Continuous Positive Airway Pressure (ICD-10-PCS; 2019-06-04)
PROC: 0BP1XDZ Removal of Intraluminal Device from Trachea, External Approach (ICD-10-PCS; 2019-06-04)
PROC: 5A12012 Performance of Cardiac Output, Single, Manual (ICD-10-PCS; 2019-06-04)
DX: J84.9 Interstitial pulmonary disease, unspecified (principal); J96.21 Acute and chronic respiratory failure with hypoxia; I50.31 Acute diastolic (congestive) heart failure; E87.2 Acidosis; J84.10 Pulmonary fibrosis, unspecified; E11.9 Type 2 diabetes mellitus without complications; I25.2 Old myocardial infarction; I95.9 Hypotension, unspecified; I27.20 Pulmonary hypertension, unspecified; I25.10 Atherosclerotic heart disease of native coronary artery without angina pectoris; K21.9 Gastro-esophageal reflux disease without esophagitis; F43.10 Post-traumatic stress disorder, unspecified; M06.9 Rheumatoid arthritis, unspecified
CPT/HCPCS: 31500; 36415; 36600; 71045; 71275; 80048; 80053; 80061; 81001; 82140; 82803; 82962; 83690; 83880; 84484; 85007; 85025; 85379; 85610; 85730; 87040; 93005; 93010; 94640; 94660; 94760; G0378; A9270-GY; J0171; J1265; J1650; J1956; J2060; J2270; J2543; J2930; J7030; Q9967